=== PATIENT | female | born 2000 | race Caucasian/White ===

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

== ENCOUNTER 2024-01-07 06:28 | Day surgery (SDC) | payer OTHER ==
[2024-01-07] MEDS: Ringers Lactate 1,000 ML IV ONE (07:00)
[2024-01-07] MEDS ORDERED: ONDANSETRON 4 MG/2 ML VIAL ONE (07:57)
[2024-01-07] MEDS ORDERED: dexAMETHasone 10 MG/ML VIAL ONE (07:57)
[2024-01-07] MEDS ORDERED: propofoL 200 MG/20 ML VIAL IV ONE (07:57)
[2024-01-07] MEDS ORDERED: FENTANYL CITR 100 MCG/2 ML ONE (07:57)
[2024-01-07 08:21] VITALS: O2SAT 100
[2024-01-07] MEDS ORDERED: MIDAZOLAM HCL 2 MG/2 ML INJ ONE (08:26)
[2024-01-07] MEDS: SCOPOLAMINE HYDROBROMIDE PATCH TD ONE (08:55)
[2024-01-07] MEDS: ONDANSETRON 4 MG/2 ML VIAL ONE (09:45)
[2024-01-07] MEDS: PROMETHAZINE INJ 25 MG/ML AMP ONE (09:50)
[2024-01-07] MEDS: KETOROLAC 30 MG/ML INJ ONE (10:00)
[2024-01-07] MEDS: ACETAMINOPHEN 160 MG/5 ML UCUP ONE (10:30)
[2024-01-07 12:03] VITALS: BP 139/85; TEMP 97.4
--- NOTE | 2024-01-07 12:56 | OP ---
Date of Procedure: 01/07/2024 Surgeon: RAQUEL TAN Preoperative Diagnosis: Chronic tonsillitis. Postoperative Diagnosis: Chronic tonsillitis. Procedure: Tonsillectomy. Anesthesia: General endotracheal anesthesia was administered. Specimens: Bilateral tonsils submitted to Pathology for evaluation. Estimated Blood Loss: Less than 5 mL. Findings: Bilateral cryptic tonsils with tonsil stones 2/4; no evidence of adenoid tissue. Complications: None. Disposition: Stable. The patient tolerated the procedure well. Indications For Procedure: Patient is a 23-year-old female with the history of chronic tonsillitis f or many years. This has been refractory to multiple rounds of antibiotics. These were indications t o bring the patient to operative suite for the above-mentioned procedure. She understood. All quest ions were answered. Risks versus benefits and complications were explained in detail and a consent f orm was signed, and was placed in the chart. Description Of Procedure: The patient was transferred from the preoperative holding area to the oper ative suite by Department of Anesthesia, placed on the operating room table supine, sedated and intub ated in normal fashion. Table was rotated to 90 degrees and her neck was placed into gentle extensio n. A McIvor retractor was introduced to the right oral commissure and directed along the endotrachea l tube and suspended to the Murphy stand. Tonsils were removed by retracting the superior poles midlin e with straight Allis clamps and then I dissected through the mucosa down the peritonsillar fascial p lanes with monopolar electrocautery on the setting of 20 for coagulation and 1 of cutting and the inf erior poles were then amputated with suction Bovie. The soft palate was retracted anteriorly and the re was no evidence of adenoid tissue when examined with laryngeal mirror. All areas were checked for hemostasis and hemostasis was achieved with suction Bovie on a setting of 20 for coagulation. A fle xible orogastric tube was inserted into the esophagus and stomach and all fluid contents were removed . Patient was then de-suspended from the Murphy stand. McIvor retractor was removed. The patient's j aw was checked, found to be in proper alignment. She was transferred back to Department of Anesthesi a in stable condition and was subsequently transferred to PACU and then discharged home on analgesic medication. Will follow up in 4 weeks or sooner, if needed. SULTANA/MODL Voice ID: [id number] Report ID: [id number]
== END 2024-01-07 11:33 | disposition home or self-care (01) ==
LOC: OR 06:28
PROVIDERS: ATTEND Otolaryngology Facial Plastic Surgery
PROC: 0CTPXZZ Resection of Tonsils, External Approach (ICD-10-PCS; principal; 2024-01-07 08:00)
DX: J35.01 Chronic tonsillitis (principal)
CPT/HCPCS: 81025; 88304; J1100; J2250; J2405; J2550; J2704; J3010; J7120

== ENCOUNTER 2024-03-25 17:17 | Inpatient (IN) | payer OTHER ==
[2024-03-25] MEDS ORDERED: ONDANSETRON 4 MG/2 ML VIAL ONE (17:49)
[2024-03-25] MEDS ORDERED: NA CHLORIDE 0.9% 1,000 ML ONE (17:49)
[2024-03-25] MEDS ORDERED: MORPHINE 4 MG/ML SYR ONE (17:50)
[2024-03-25 18:09] LABS: Absolute Basophils 0.1 K/uL (0-0.5); Absolute Lymphocytes (CBC) 2.4 K/uL (0.7-4.9); Absolute Monocytes 0.7 K/uL (0.1-1.3); Absolute Neutrophil 10.3 K/uL (1.8-8.0); Basophils % 0.6 % (0-1.3); Eosinophils % 0.3 % (0-4.4); Hemoglobin 12.9 g/dL (12.0-15.0); MCH 25.8 pg (27.0-35.0); MCHC 32.3 g/dL (32.0-36.0); MPV 8.5 fL (7.6-11.3); Monocytes % 5.1 % (3.3-12.3); Nucleated Red Blood Cells % 0.1 % (0-0); Platelets 325 thou/uL (152-406); Red Cell Distribution Width 15.8 % (12.1-15.2)
[2024-03-25 18:11] LABS: Specific Gravity 1.015 (1.005-1.030)
[2024-03-25 18:19] LABS: Specific Gravity 1.015 (1.005-1.030); Sqamous Epithelial <5 /HPF (None Seen); Urine Bacteria <20 /HPF (<20); Urine Bilirubin NEGATIVE (Negative); Urine Blood Negative (Negative); Urine Clarity Turbid (Clear); Urine Color Light-Yellow (Yellow); Urine Culture Reflex Order NOT NEEDED; Urine Glucose NEGATIVE (Negative); Urine Ketones NEGATIVE (Negative); Urine Microscopic Reflex YN ORDER UMIC; Urine Nitrite NEGATIVE (Negative); Urine Protein NEGATIVE (Negative); Urine RBC <5 /HPF (None Seen); Urine Urobilinogen Normal (Normal)
[2024-03-25 18:22] LABS: Albumin 3.8 g/dL (3.4-5.0); Albumin/Globulin Ratio 1.2 (1.1-1.8); Anion Gap 9.1 mEq/L (5.0-15.0); Bilirubin Total 0.6 mg/dL (0.2-1.0); Globulin 3.3 g/dL (2.3-3.5); Potassium 4.1 mEq/L (3.5-5.1); Protein, Total 7.1 g/dL (6.4-8.2)
--- NOTE | 2024-03-25 18:59 | RAD REPORT ---
EXAM DESCRIPTION: CT - Abdomen Pelvis W Contrast - 03/25/2024 6:38 pm CLINICAL HISTORY: Abdominal pain COMPARISON: 2021 TECHNIQUE: Computed axial tomography of the abdomen pelvis was obtained. 100 cc Isovue-300 was admin istered intravenously. Oral contrast was not requested which limits evaluation of bowel and appendix All CT scans are performed using dose optimization technique as appropriate and may include automated exposure control or mA/KV adjustment according to patient size. FINDINGS: The liver, spleen, pancreas, adrenal and kidneys appear unremarkable. There is no evidence of diverticulitis. 5 millimeter gallstone within neck of the gallbladder. 2.2 centimeter left ovarian cyst. No followup imaging recommended. No significant fluid. Appendix is normal caliber. There may be stone within the appendix IUD within the uterus IMPRESSION: Cholelithiasis 2.2 centimeter left ovarian cyst
--- NOTE | 2024-03-25 19:01 | RAD REPORT ---
EXAM DESCRIPTION: US - Abdomen Exam Limited - 03/25/2024 6:05 pm CLINICAL HISTORY: Abdominal pain. COMPARISON: CT abdomen March 25, 2024 FINDINGS: CT on the same date demonstrates a 5 millimeter stone within the neck of the gallbladder. This was not visualized on this exam but it is still felt to be present Gallbladder wall is not thickened The biliary tree is normal caliber. IMPRESSION: Cholelithiasis without evidence cholecystitis
[2024-03-25] MEDS ORDERED: DIPHENHYDRAMINE 50 MG/ML VIAL ONE (19:05)
[2024-03-25] MEDS ORDERED: METOCLOPRAMIDE 10 MG/2mL INJ ONE (19:05)
[2024-03-25] MEDS ORDERED: NA CHLORIDE 0.9% 100 ML ONE (20:44)
[2024-03-25] MEDS ORDERED: PIPERACIL/TAZO 3.375 GM VIAL IV ONE (20:45)
--- NOTE | 2024-03-25 21:19 | ER ---
Nurse's Notes [facility] Name: Audrey Alford Age: 24 yrs Sex: Female : 2000 Arrival Date: 03/25/2024 Time: 17:17 Bed 14 Private MD: Diagnosis: Other cholelithiasis without obstruction Presentation: 03/25 17:27 Chief complaint: EMS states: Sudden onset severe RLQ pain that started at 1600. hb Fentanyl 75 mcg, Zofran 4 mg, and NS 750 mls administered to 20g [employer]. Coronavirus screen: At this time, the client does not indicate any symptoms associated with coronavirus-19. Ebola Screen: No symptoms or risks identified at this time. Initial Sepsis Screen: Does the patient meet any 2 criteria? No. Patient's initial sepsis screen is negative. Does the patient have a suspected source of infection? No. Patient's initial sepsis screen is negative. Risk Assessment: Do you want to hurt yourself or someone else? Patient reports no desire to harm self or others. Onset of symptoms was March 25, 2024 at 16:00. 17:27 Method Of Arrival: EMS: [facility] hb 17:27 Acuity: ADRIANA 3 hb Historical: - Allergies: 17:30 benzocaine; hb 17:30 Lidocaine; hb 17:30 numbing agents; hb - Home Meds: 17:30 Concerta Oral [Active]; hb - PMHx: 17:30 ADD/ADHD; prolonged QT; hb - PSHx: 17:30 None; hb - Immunization history:: Adult Immunizations up to date. - Infectious Disease History:: Denies. - Social history:: Smoking status: Patient denies any tobacco usage or history of. Screenin:30 [facility] ED Fall Risk Assessment (Adult) History of falling in the last 3 months, rs5 including since admission No falls in past 3 months (0 pts) Confusion or Disorientation No (0 pts) Intoxicated or Sedated No (0 pts) Impaired Gait No (0 pts) Mobility Assist Device Used No (0 pt) Altered Elimination No (0 pt) Score/Fall Risk Level 0 - 2 = Low Risk Oriented to surroundings, Maintained a safe environment. Abuse screen: Denies threats or abuse. Nutritional screening: No deficits noted. Tuberculosis screening: No symptoms or risk factors identified. Assessment: 17:30 General: Appears in no apparent distress. uncomfortable, Behavior is cooperative, rs5 agitated, anxious. Pain: Complains of pain in abdomen Pain currently is 10 out of 10 on a pain scale. Quality of pain is described as aching, Is continuous. Neuro: Level of Consciousness is awake, alert, obeys commands, Oriented to person, place, time, situation. Cardiovascular: Patient's skin is warm and dry. Respiratory: Airway is patent Respiratory effort is even, unlabored, Respiratory pattern is regular, symmetrical. GI: Abdomen is round non-distended, Bowel sounds present X 4 quads. Abd is soft and non tender X 4 quads. : No signs and/or symptoms were reported regarding the genitourinary system. EENT: No signs and/or symptoms were reported regarding the EENT system. Derm: Skin is intact, Skin is pink, warm \T\ dry. Musculoskeletal: Range of motion: intact in all extremities. 19:10 General: Appears in no apparent distress. uncomfortable, Behavior is calm, cooperative. jw7 Pain: Complains of pain in abdomen Pain does not radiate. Pain currently is 8 out of 10 on a pain scale. Quality of pain is described as aching, Pain began gradually, Is continuous. Neuro: Level of Consciousness is awake, alert, obeys commands, Oriented to person, place, time, situation. Cardiovascular: Capillary refill < 3 seconds Clubbing of nail beds is absent JVD is absent Patient's skin is warm and dry. Respiratory: Airway is patent Trachea midline Respiratory effort is even, unlabored, Respiratory pattern is regular, symmetrical. GI: Abdomen is round non-distended, Bowel sounds present X 4 quads. Abd is soft and non tender X 4 quads. : No deficits noted. No signs and/or symptoms were reported regarding the genitourinary system. EENT: No deficits noted. No signs and/or symptoms were reported regarding the EENT system. Derm: Skin is intact, is healthy with good turgor, Skin is dry, Skin is normal, Skin temperature is warm. Musculoskeletal: Circulation, motion, and sensation intact. Range of motion: intact in all extremities. 20:25 Reassessment: Patient appears in no apparent distress at this time. Patient and/or jw7 family updated on plan of care and expected duration. Pain level reassessed. Patient is alert, oriented x 3, equal unlabored respirations, skin warm/dry/pink. 21:30 Reassessment: Patient appears in no apparent distress at this time. No changes from [facility] previously documented assessment. Patient and/or family updated on plan of care and expected duration. Pain level reassessed. Patient is alert, oriented x 3, equal unlabored respirations, skin warm/dry/pink. 22:30 Reassessment: Patient appears in no apparent distress at this time. No changes from [facility] previously documented assessment. Patient and/or family updated on plan of care and expected duration. Pain level reassessed. Patient is alert, oriented x 3, equal unlabored respirations, skin warm/dry/pink. 23:30 Reassessment: Patient appears in no apparent distress at this time. No changes from [facility] previously documented assessment. Patient and/or family updated on plan of care and expected duration. Pain level reassessed. Patient is alert, oriented x 3, equal unlabored respirations, skin warm/dry/pink. 03/26 00:00 Reassessment: Patient appears in no apparent distress at this time. No changes from [facility] previously documented assessment. Patient and/or family updated on plan of care and expected duration. Pain level reassessed. Patient is alert, oriented x 3, equal unlabored respirations, skin warm/dry/pink. Vital Signs: 03/25 17:27 BP 128 / 78; Pulse 69; Resp 19; Temp 98.8(TE); Pulse Ox 100% on R/A; Weight 55.79 kg; hb Height 5 ft. 4 in. ; Pain 6/10; 19:00 BP 135 / 81; Pulse 83; Resp 17 S; Pulse Ox 99% on R/A; jw7 20:15 BP 116 / 74; Pulse 68; Resp 15 S; Pulse Ox 98% on R/A; jw7 21:00 BP 124 / 67; Pulse 71; Resp 16 S; Pulse Ox 100% on R/A; bm8 22:00 BP 113 / 68; Pulse 79; Resp 15 S; Pulse Ox 99% on R/A; bm8 23:00 BP 101 / 50; Pulse 61; Resp 16 S; Pulse Ox 98% on R/A; 8 03/26 00:00 BP 122 / 86; Pulse 78; Resp 16 S; Pulse Ox 99% on R/A; bm8 03/25 17:27 Body Mass Index 21.11 (55.79 kg, 162.56 cm) hb 03/25 17:27 Pain Scale: Adult hb ED Course: 03/25 17:26 Patient arrived in ED. hb 17:27 Praful Salas PA is PHCP. cp 17:27 Micheal Colin MD is Attending Physician. cp 17:30 Triage completed. hb 17:30 Patient has correct armband on for positive identification. Placed in gown. Bed in low rs5 position. Call light in reach. Side rails up X2. 17:30 No provider procedures requiring assistance completed. rs5 17:31 Arm band placed on. hb 17:38 Prabhjot Kuo, RN is Primary Nurse. rs5 18:07 US Abdomen Limited In Process Unspecified. EDMS 18:38 CT Abd/Pelvis - IV Contrast Only In Process Unspecified. EDMS 19:00 Provided Education on: Use of Call Light. bm8 21:18 Cole Cuba MD is Hospitalizing Provider. cp 21:18 Venkat Montenegro MD is Hospitalizing Provider. cp 03/26 00:00 Patient admitted, IV remains in place. bm8 Administered Medications: 03/25 17:40 Drug: NS 0.9% IV 1000 ml IV at 999 ml/hr Per protocol; 1000 mL bolus Route: IV; Rate: rs5 999 ml/hr; Site: left antecubital; 20:00 Follow up: Response: No adverse reaction; IV Status: Completed infusion; IV Intake: bm8 1000ml 17:40 Drug: Ondansetron IVP 4 mg IVP once; over 2 minutes Route: IVP; Site: left antecubital; rs5 19:00 Follow up: Response: No adverse reaction; Marked relief of symptoms bm8 17:40 Drug: morphine IVP or IV 4 mg IVP once over 4 mins Route: IVP; Infused Over: 4 mins; rs5 Site: left antecubital; 20:56 Follow up: Response: No adverse reaction; Marked relief of symptoms jw7 19:15 Drug: metoCLOPramide IVP 10 mg IVP once; over 1 to 2 minutes Route: IVP; Site: left jw antecubital; 20:56 Follow up: Response: No adverse reaction; Marked relief of symptoms jw7 19:15 Drug: diphenhydrAMINE IVP 25 mg IVP once Route: IVP; Site: left antecubital; jw7 20:57 Follow up: Response: No adverse reaction jw7 20:56 Drug: Piperacillin-Tazobactam IVPB 3.375 grams IVPB once over 60 mins; (mix in NS 100 jw7 mL) Route: IVPB; Infused Over: 60 mins; Site: left antecubital; 03/26 01:19 Follow up: Response: No adverse reaction; IV Status: Completed infusion; IV Intake: bm8 100ml Medication: 03/25 18:00 VIS not applicable for this client. rs5 Intake: 20:00 IV: 1000ml; Total: 1000ml. bm8 03/26 01:19 IV: 100ml; Total: 1100ml. bm8 Outcome: 03/25 21:19 Decision to Hospitalize by Provider. cp 03/26 00:00 Condition: stable bm8 00:00 Admitted to Med/surg accompanied by tech, via wheelchair, bm8 00:00 Instructed on the need for admit, Demonstrated understanding of instructions, 01:21 Patient left the ED. bm8 Signatures: Dispatcher [employer] EDMS Praful Salas PA PA cp Graciela Manuel RN RN Nancie Howard RN RN jw7 Prabhjot Kuo RN RN rs5 Rafael Ivory RN RN bm8 Corrections: (The following items were deleted from the chart) 01:03/25 23:30 Reassessment: Patient appears in no apparent distress at this time. No bm8 changes from previously documented assessment. Patient and/or family updated on plan of care and expected duration. Pain level reassessed. Patient is alert, oriented x 3, equal unlabored respirations, skin warm/dry/pink. jw7
--- NOTE | 2024-03-25 21:19 | EDPHYS ---
Physician Documentation [facility] Name: Audrey Alford Age: 24 yrs Sex: Female : 2000 Arrival Date: 03/25/2024 Time: 17:17 Bed 14 Private MD: ED Physician Micheal Colin HPI: 03/25 17:29 This 24 yrs old Female presents to ER via Unassigned with complaints of Abdominal Pain. cp 17:29 The patient presents with abdominal pain right flank and right side of abdomen. cp 17:29 Onset: The symptoms/episode began/occurred today, about 1600. cp 17:29 The symptoms radiate to Associated signs and symptoms: Pertinent positives: nausea and cp vomiting, Pertinent negatives: constipation, diarrhea, fever. The symptoms are described as constant. Severity of pain: in the emergency department the pain has improved mildly. Historical: - Allergies: 17:30 benzocaine; hb 17:30 Lidocaine; hb 17:30 numbing agents; hb - Home Meds: 17:30 Concerta Oral [Active]; hb - PMHx: 17:30 ADD/ADHD; prolonged QT; hb - PSHx: 17:30 None; hb - Immunization history:: Adult Immunizations up to date. - Infectious Disease History:: Denies. - Social history:: Smoking status: Patient denies any tobacco usage or history of. ROS: 17:35 Constitutional: Negative for body aches, chills, fever, cp 17:35 Eyes: Negative for injury, pain, redness, and discharge, cp 17:35 ENT: Negative for drainage from ear(s), ear pain, sore throat, difficulty swallowing, difficulty handling secretions, 17:35 Cardiovascular: Negative for chest pain, palpitations, 17:35 Respiratory: Negative for cough, shortness of breath, wheezing, 17:35 Abdomen/GI: Positive for abdominal pain, nausea and vomiting, Negative for diarrhea, constipation, 17:35 Back: Positive for radiated pain, 17:35 Neuro: Negative for altered mental status, headache, weakness, 17:35 All other systems are negative, Exam: 17:40 Constitutional: The patient appears in no acute distress, alert, awake, non-toxic, well cp developed, well nourished, in obvious pain, uncomfortable, 17:40 Head/Face: Normocephalic, atraumatic. cp 17:40 Eyes: Periorbital structures: appear normal, Conjunctiva: normal, no exudate, no injection, Sclera: no appreciated abnormality, Lids and lashes: appear normal, bilaterally, 17:40 ENT: External ear(s): are unremarkable, Nose: is normal, Mouth: Lips: moist, Oral mucosa: pink and intact, moist, Posterior pharynx: is normal, airway is patent, no erythema, no exudate, 17:40 Chest/axilla: Inspection: normal, 17:40 Cardiovascular: Rate: normal, Rhythm: regular, 17:40 Respiratory: the patient does not display signs of respiratory distress, Respirations: normal, no use of accessory muscles, no retractions, labored breathing, is not present, Breath sounds: are clear throughout, no decreased breath sounds, no stridor, no wheezing, 17:40 Abdomen/GI: Inspection: abdomen appears normal, Bowel sounds: active, all quadrants, Palpation: soft, in all quadrants, severe abdominal tenderness, in the epigastric area and right upper quadrant, rebound tenderness, is not appreciated, voluntary guarding, is elicited in the epigastric area and right upper quadrant, 17:40 Back: CVA tenderness, is absent, 17:40 Neuro: Orientation: to person, place \T\ time. Mentation: is normal, Vital Signs: 17:27 BP 128 / 78; Pulse 69; Resp 19; Temp 98.8(TE); Pulse Ox 100% on R/A; Weight 55.79 kg; hb Height 5 ft. 4 in. ; Pain 6/10; 19:00 BP 135 / 81; Pulse 83; Resp 17 S; Pulse Ox 99% on R/A; jw7 20:15 BP 116 / 74; Pulse 68; Resp 15 S; Pulse Ox 98% on R/A; jw7 21:00 BP 124 / 67; Pulse 71; Resp 16 S; Pulse Ox 100% on R/A; bm8 22:00 BP 113 / 68; Pulse 79; Resp 15 S; Pulse Ox 99% on R/A; bm8 23:00 BP 101 / 50; Pulse 61; Resp 16 S; Pulse Ox 98% on R/A; bm8 03/26 00:00 BP 122 / 86; Pulse 78; Resp 16 S; Pulse Ox 99% on R/A; bm8 03/25 17:27 Body Mass Index 21.11 (55.79 kg, 162.56 cm) hb 03/25 17:27 Pain Scale: Adult hb MDM: 03/25 17:27 Patient medically screened. cp 18:00 Differential diagnosis: appendicitis, cholecystitis, Cholelithiasis, pancreatitis, cp Peptic Ulcer Disease, Perf. Duodenal Ulcer, Perf. Gastric Ulcer, Ureterolithiasis, urinary tract infection, choledocholithiasis. 20:05 ED course: msg left on voicemail of DR Cuba. cp 20:13 Data reviewed: vital signs, nurses notes, lab test result(s), radiologic studies, CT cp scan, ultrasound, and as a result, I will admit patient. 20:13 Management of patient was discussed with the following: Bulkhead Carpenter: DR Cuba will cp consult. I considered the following discharge prescriptions or medication management in the emergency department Medications were administered in the Emergency Department. See MAR. Independent interpretation of the following test(s) in the Emergency Department EKG: See my EKG interpretation above. Counseling: I had a detailed discussion with the patient and/or guardian regarding the historical points, exam findings, and any diagnostic results supporting the discharge/admit diagnosis, lab results, radiology results, the need for further work-up and treatment in the hospital. 03/25 17:27 Order name: CBC with Diff; Complete Time: 18:28 cp 03/25 19:05 Interpretation: Normal except: WBC 13.60; RBC 5.00; MCH 25.8; RDW 15.8; TATIANA% 76.0; NEUT cp A 10.3. 03/25 17:27 Order name: CMP; Complete Time: 18:28 cp 03/25 17:27 Order name: Lipase; Complete Time: 18:28 cp 03/25 17:27 Order name: Test, Urine; Complete Time: 18:28 cp 03/25 17:27 Order name: Urinalysis w/ reflexes; Complete Time: 18:28 cp 03/25 22:55 Order name: Urinalysis w/ reflexes EDMS 03/25 22:55 Order name: Urinalysis w/ reflexes EDMS 03/25 22:55 Order name: CBC with Automated Diff EDMS 03/25 22:55 Order name: CBC with Automated Diff EDMS 03/25 22:55 Order name: Comprehensive Metabolic Panel [facility] 03/25 22:55 Order name: Comprehensive Metabolic Panel [facility] 03/25 17:49 Order name: US Abdomen Limited; Complete Time: 19:03 cp 03/25 18:05 Order name: CT Abd/Pelvis - IV Contrast Only; Complete Time: 19:03 cp 03/25 20:28 Order name: EKG; Complete Time: 20:28 cp 03/25 22:55 Order name: CONS Physician Consult [facility] 03/25 17:27 Order name: IV Saline Lock; Complete Time: 18:22 cp 03/25 17:27 Order name: Labs collected and sent; Complete Time: 17:58 cp 03/25 17:49 Order name: NPO; Complete Time: 17:58 cp 03/25 20:28 Order name: EKG - Nurse/Tech; Complete Time: 21:34 cp Administered Medications: 17:40 Drug: NS 0.9% IV 1000 ml IV at 999 ml/hr Per protocol; 1000 mL bolus Route: IV; Rate: rs5 999 ml/hr; Site: left antecubital; 20:00 Follow up: Response: No adverse reaction; IV Status: Completed infusion; IV Intake: bm8 1000ml 17:40 Drug: Ondansetron IVP 4 mg IVP once; over 2 minutes Route: IVP; Site: left antecubital; rs5 19:00 Follow up: Response: No adverse reaction; Marked relief of symptoms bm8 17:40 Drug: morphine IVP or IV 4 mg IVP once over 4 mins Route: IVP; Infused Over: 4 mins; rs5 Site: left antecubital; 20:56 Follow up: Response: No adverse reaction; Marked relief of symptoms jw7 19:15 Drug: metoCLOPramide IVP 10 mg IVP once; over 1 to 2 minutes Route: IVP; Site: left [facility] antecubital; 20:56 Follow up: Response: No adverse reaction; Marked relief of symptoms jw7 19:15 Drug: diphenhydrAMINE IVP 25 mg IVP once Route: IVP; Site: left antecubital; jw7 20:57 Follow up: Response: No adverse reaction [facility] 20:56 Drug: Piperacillin-Tazobactam IVPB 3.375 grams IVPB once over 60 mins; (mix in NS 100 jw7 mL) Route: IVPB; Infused Over: 60 mins; Site: left antecubital; 03/26 01:19 Follow up: Response: No adverse reaction; IV Status: Completed infusion; IV Intake: bm8 100ml Disposition: 03/25 20:14 Co-signature as Attending Physician, Micheal Colin MD I reviewed the patient's care rt provided by the Advanced Practice Provider and agree with the diagnosis and treatment plan. Disposition Summary: 03/25/24 21:19 Hospitalization Ordered Notes: Hospitalization Status: Inpatient Admission cp Provider: Venkat Montenegro cp [facility] cp Condition: Stable cp Problem: new cp Symptoms: have improved cp Bed/Room Type: Standard cp Room Assignment: 231(03/25/24 23:16) vc1 Diagnosis - Other cholelithiasis without obstruction cp Forms: - Medication Reconciliation Form cp - SBAR form cp - Leadership Thank You Letter cp Signatures: Dispatcher [employer] EDMS Praful Salas PA PA cp Graciela Manuel RN RN Gladys Escobar RN RN vc1 Nancie Howard RN RN jw7 Micheal Colin MD MD rt Prabhjot Kuo RN RN rs5 Rafael Ivory RN bm8 Corrections: (The following items were deleted from the chart) 17:28 17:28 CBC+H.LAB.BRZ ordered. EDMS EDMS 17:28 17:28 COMPREHENSIVE METABOLIC PANEL+C.LAB.BRZ ordered. EDMS EDMS 17:28 17:28 LIPASE+C.LAB.BRZ ordered. EDMS EDMS 17:28 17:28 Test, Urine+UC.LAB.BRZ ordered. EDMS EDMS 17:28 17:28 Urinalysis+U.LAB.BRZ ordered. EDMS EDMS 23:16 21:19 cp vc1
--- NOTE | 2024-03-25 22:32 | P.HP ---
Certification for Inpatient Patient admitted to: Observation With expected LOS: <2 Midnights Practitioner: I am a practitioner with admitting privileges, knowledge of patient current condition, hospital course, and medical plan of care. Services: Services provided to patient in accordance with Admission requirements found in Title 42 Section 412.3 of the Code of Federal Regulations Patient History Date of Service: 03/25/24 Reason for admission: Cholecystitis History of Present Illness: 22-year-old female came with past medical history of ADD, prolonged QT who came in with complaints of Abdominal Pain.The patient presents with abdominal pain right flank and right side of abdomen. Pain is 5 out of 10 in severity in the ER at the time of interview. Denies any nausea vomiting. No fever or chills. No sick contacts Patient was assessed in the ER and was found to have acute cholecystitis and was admitted for further management. Allergies benzocaine Allergy (Verified 01/07/24 08:01) 02 sats drop lidocaine Allergy (Verified 01/07/24 08:01) o2 sats drop Home Medications: NK [No Home Meds] 01/06/24 - Past Medical/Surgical History Past Medical History: Reviewed- Non-Contributory Past Surgical History: Reviewed- Non-Contributory - Family History Family History: Reviewed- Non-Contributory - Social History Smoking Status: Never smoker Review of Systems 10-point ROS is otherwise unremarkable Physical Examination - Vital Signs Temperature: 97.8 F Blood Pressure: 126/68 Pulse: 78 Respirations: 18 Pulse Ox (%): 94 - Physical Exam General: Alert, In no apparent distress, Oriented x3 HEENT: Atraumatic, Normocephalic Neck: Supple, No Thyromegaly Respiratory: Clear to auscultation bilaterally, Normal air movement Cardiovascular: Normal pulses, Regular rate/rhythm, Normal S1 S2 Capillary refill: <2 Seconds Gastrointestinal: Soft and benign, W/out hepatosplenomegaly, Tenderness Musculoskeletal: No clubbing, No swelling Integumentary: No rashes, No breakdown Neurological: Normal speech, Normal strength at 5/5 x4 extr, Cranial nerves 3-12 intact, Normal reflexes 2+, Normal affect Lymphatics: No axilla or inguinal lymphadenopathy - Studies Laboratory Data (last 24 hrs) 03/25/24 03/25/24 17:54 17:54 WBC 13.60 H Hgb 12.9 Hct 40.0 Plt Count 325 Sodium 137 Potassium 4.1 BUN 12 Creatinine 0.90 Glucose 88 Total Bilirubin 0.6 AST 16 ALT 21 Alkaline Phosphatase 66 Lipase 29 Assessment and Plan - Problems (Diagnosis) (1) Cholecystitis Current Visit: Yes Status: Acute Plan: Acute cholecystitis Pain control N.p.o. postmidnight IV hydration Started on Zosyn Surgical consult Possible lap evert in a.m. GI/DVT prophylaxis Advanced directive full code Discharge Plan: Home Plan to discharge in: 48 Hours - Advance Directives Does patient have a Living Will: No Does patient have a Durable POA for Healthcare: No - Code Status/Comfort Care Code Status: Full Code Time Spent Managing Pts Care (In Minutes): 48
[2024-03-26] MEDS ORDERED: ONDANSETRON 4 MG/2 ML VIAL IV PRN
[2024-03-26] MEDS: NA CHLORIDE 0.9% 1,000 ML IV SCH (00:40)
[2024-03-26] MEDS: MORPHINE 4 MG/ML SYR IV PRN (01:36)
[2024-03-26] MEDS: PROMETHAZINE INJ 25 MG/ML AMP IV PRN (01:47)
[2024-03-26 06:29] LABS: Hematocrit 35.3 % (36.0-45.0); Hemoglobin 11.9 g/dL (12.0-15.0); RBC Red Blood Cell Count 4.42 M/uL (3.86-4.86)
[2024-03-26 06:30] LABS: Absolute Eosinophils 0.1 K/uL (0-0.5); Absolute Monocytes 0.6 K/uL (0.1-1.3); Basophils % 0.5 % (0-1.3); Lymphocytes % 30.4 % (15.3-44.8); MCH 26.9 pg (27.0-35.0); MCHC 33.6 g/dL (32.0-36.0); MPV 8.4 fL (7.6-11.3); Neutrophils % 59.1 % (41.7-73.7); Platelets 233 thou/uL (152-406); Red Cell Distribution Width 15.8 % (12.1-15.2)
[2024-03-26 07:11] LABS: Albumin 2.9 g/dL (3.4-5.0); Albumin/Globulin Ratio 1.1 (1.1-1.8); Anion Gap 7.9 mEq/L (5.0-15.0); Bilirubin Total 0.3 mg/dL (0.2-1.0); Globulin 2.6 g/dL (2.3-3.5); Potassium 3.9 mEq/L (3.5-5.1); Protein, Total 5.5 g/dL (6.4-8.2)
--- NOTE | 2024-03-26 08:44 | P.PN ---
Date of Service: 03/26/24 Subjective NPO for surg to eval acute cholecystitis, pain control as needed analgesia Review of Systems 10-point ROS is otherwise unremarkable Physical Examination - Vital Signs Temperature: 97.8 F Blood Pressure: 126/68 Pulse: 78 Respirations: 18 Pulse Ox (%): 94 - Physical Exam General: Alert, mild distress, facial grimace, oriented x3 HEENT: Atraumatic, Normocephalic Neck: Supple, No Thyromegaly Respiratory: Clear to auscultation bilaterally, Normal air movement Cardiovascular: Normal pulses, Regular rate/rhythm, Normal S1 S2 Capillary refill: <2 Seconds Gastrointestinal: Soft and benign, W/out hepatosplenomegaly, Tenderness Musculoskeletal: No clubbing, No swelling Integumentary: No rashes, No breakdown Neurological: Normal speech, Normal strength at 5/5 x4 extr,, Normal reflexes 2+, Normal affect Assessment and Plan - Problems (Diagnosis) Acute cholecystitis Pain control N.p.o. postmidnight IV hydration Started on Zosyn Surgical consult Possible lap evert in a.m. GI/DVT prophylaxis Advanced directive full code Discharge Plan: Home Plan to discharge in: 48 Hours - Advance Directives Does patient have a Living Will: No Does patient have a Durable POA for Healthcare: No - Code Status/Comfort Care Code Status: Full Code Time Spent Managing Pts Care (In Minutes): 35 <Kelsi Wu - Last Filed: 03/27/24 12:18> Chart has been reviewed. Events of the last 24 hours have been noted. Case discussed with ADITI. I performed a substantial part of the MDM during this patient's care today. I personally made or approved the documented management plan and acknowledge its risk of complications. I agree with the findings and documentation provided in the ADITI's notes Discharge on hold because of elevated LFTs. Repeat in a.m. and if improved anticipate discharge home. <Alex Rosario - Last Filed: 03/29/24 03:32>
--- NOTE | 2024-03-26 08:45 | P.DS ---
Admission Date: 03/25/24 Discharge Date: 03/27/24 Disposition: ROUTINE DISCHARGE Discharge Condition: GOOD Reason for Admission: Cholecystitis Brief History of Present Illness: 22-year-old female came with past medical history of ADD, prolonged QT who came in with complaints of Abdominal Pain.The patient presents with abdominal pain right flank and right side of abdomen. Pain is 5 out of 10 in severity in the ER at the time of interview. Denies any nausea vomiting. No fever or chills. No sick contacts Patient was assessed in the ER and was found to have acute cholecystitis and was admitted for further management. - Physical Exam General: Alert, In no apparent distress, Oriented x3 HEENT: Atraumatic, Normocephalic Neck: Supple, No Thyromegaly Respiratory: Clear to auscultation bilaterally, Normal air movement Cardiovascular: Normal pulses, Regular rate/rhythm, Normal S1 S2 Capillary refill: <2 Seconds Gastrointestinal: Soft and benign, W/out hepatosplenomegaly, Tenderness Musculoskeletal: No clubbing, No swelling Integumentary: No rashes, No breakdown Neurological: Normal speech, Normal strength at 5/5 x4 extr, Cranial nerves 3-12 intact, Normal reflexes 2+, Normal affect Lymphatics: No axilla or inguinal lymphadenopathy Hospital Course: 22-year-old female came with past medical history of ADD, prolonged QT who came in with complaints of Abdominal Pain.The patient presents with abdominal pain right flank and right side of abdomen. Was noted to have acute cholecystitis. She was evaluated by surgery, status post lap cholecystectomy, condition improved with IV fluids, as needed analgesics, as needed antiemetics, antibiotics. Patient tolerating diet, stable for discharge to home with follow- up appointment with primary care physician. Follow-up with surgery after discharge, no heavy lifting greater than 10, follow-up with surgery in 1 PROBLEM: Acute cholecystitis, evaluated by Dr. Cuba, status post laparoscopic cholecystectomy, follow-up with surgery after discharge, no heavy lifting greater than 10 LBS Continue home medicines as previously prescribed GOAL: Clear understanding of disease process INSTRUCTIONS: Physician Discharge Instructions: -Follow-up with PCP in 1 to 2 weeks -Please call Dr. Rosario at [phone] if any questions regarding hospital stay -Please call nursing station at [phone] if any nursing or medication questions -Return to the emergency room if symptoms worsen Diet: ADA, low sodium Activity: Fall precautions Vital Signs/Physical Exam: Temp Pulse Resp BP Pulse Ox 97.5 F 58 17 102/54 L 100 03/26/24 04:00 03/26/24 04:00 03/26/24 04:00 03/26/24 04:00 03/26/24 04:00 Laboratory Data at Discharge: WBC 6.70 thou/uL (4.3-10.9) 03/26/24 05:56 Hgb 11.9 g/dL (12.0-15.0) L 03/26/24 05:56 Hct 35.3 % (36.0-45.0) L 03/26/24 05:56 Plt Count 233 thou/uL (152-406) D 03/26/24 05:56 Sodium 141 mEq/L (136-145) 03/26/24 05:59 Potassium 3.9 mEq/L (3.5-5.1) 03/26/24 05:59 BUN 9 mg/dL (7-18) 03/26/24 05:59 Creatinine 0.77 mg/dL (0.55-1.02) 03/26/24 05:59 Glucose 82 mg/dL (74-106) 03/26/24 05:59 Total Bilirubin 0.3 mg/dL (0.2-1.0) 03/26/24 05:59 AST 66 U/L (15-37) H 03/26/24 05:59 ALT 53 U/L (13-56) 03/26/24 05:59 Alkaline Phosphatase 68 U/L (45-117) 03/26/24 05:59 Lipase 29 U/L (13-75) 03/25/24 17:54 Home Medications: Codeine/APAP [Tylenol W/Codeine #3 tab] 1 tab PO Q8HP PRN 5 Days #15 tab 03/27/24 New Medications: Codeine/APAP [Tylenol W/Codeine #3 tab] 1 tab PO Q8HP PRN 5 Days #15 tab PRN Reason: Pain Physician Discharge Instructions: Keep surgical area dry and clean for 48h then may remove outer gauze and shower but keep sterile strips intact. Diet: Low sodium Activity: No lifting more than 10 lbs Followup: Cole Cuba MD [ACTIVE - CAN ADMIT] - 1 Week NONE,NONE [Primary Care Provider] - Time spent managing pt's care (in minutes): 55
[2024-03-26] MEDS: Ringers Lactate 1,000 ML IV ONE ×2 (09:27→11:26)
[2024-03-26] MEDS: SUGAMMADEX SODIUM 200 MG/2 ML VIAL IV ONE (09:51)
[2024-03-26] MEDS ORDERED: ROCURONIUM 50 MG/5 ML VIAL IV ONE (09:52)
[2024-03-26] MEDS ORDERED: FENTANYL CITR 100 MCG/2 ML ONE ×2 (09:52→11:16)
[2024-03-26] MEDS ORDERED: MIDAZOLAM HCL 2 MG/2 ML INJ ONE (09:52)
[2024-03-26] MEDS ORDERED: propofoL 200 MG/20 ML VIAL IV ONE (09:52)
[2024-03-26] MEDS ORDERED: ONDANSETRON 4 MG/2 ML VIAL ONE ×2 (09:52→11:14)
[2024-03-26] MEDS ORDERED: dexAMETHasone 4 MG/ML VIAL ONE (09:52)
[2024-03-26] MEDS: METHYLENE BLUE 1% 10 ML VIAL ONE (10:12)
--- NOTE | 2024-03-26 10:28 | P.BOP ---
Preoperative diagnosis: Acute cholecystitis, intractable RUQ abd pain, sympt cholelithiasis Postoperative diagnosis: same Primary procedure: Laparoscopic cholecystectomy Business Management Intern: Kelsi Bose (Bert) Estimated blood loss: <10cc Specimen: gb Findings: as above Anesthesia: General Complications: None Transferred to: Recovery Room Condition: Good
[2024-03-26] MEDS: PIPER TAZO 3.375 GM in NA CHLORIDE 0.9% 100 ML IV ONE (10:35)
--- NOTE | 2024-03-26 11:02 | CON ---
Date of Consultation: 03/26/2024 Diagnoses: Acute cholecystitis, symptomatic cholelithiasis. History Of Present Illness: This is a case of a 24-year-old patient who comes to the hospital with e pigastric right upper quadrant back. We are trying to give her some pain medication, some relief, but it did not improve, so she was admitted overnight and a surgical consult was obtained fo r a cholecystectomy. She claims this is her first attack. She was eating a morel and cheese sandwic h before that happened. Allergies: INCLUDE BENZOCAINE, LIDOCAINE. Medications: None. Past Surgical History: Tonsillectomy. Family History: Noncontributory. Social History: She does not smoke. She does not drink alcohol. Medical Problems: History of ADD. Medications: Not on any medication at this moment. Review of Systems: Nausea, vomiting, bloating, abdominal pain. Physical Examination: Vital Signs: Reviewed. General: The patient is awake and alert. HEENT: Pupils are equal and reactive. Anicteric. Neck: Supple. Chest: Clear. Heart: S1, S2. Abdomen: Epigastric right upper quadrant pain with Talley sign positive. Breasts/Rectal/Pelvic: Deferred. Extremities: Good capillary refill. Neuro: Cranial nerves 2-12 grossly within normal limits. Laboratory Data: WBC count of 13, hemoglobin of 12.9, platelets of 325, potassium is 4.1, creatinine is 0.9. Total bilirubin of 0.6. Lipase 29. Abdominal ultrasound interpreted by Dr. Martel shows cholelithiasis. CAT scan of the abdomen and pelvis interpreted by Dr. Martel as 2.2 cm left ovarian cyst and cholelithiasis. Assessment: The patient was informed. Laparoscopic versus open cholecystectomy fully explained, whi ch include, but not limited to infection, bleeding, damage to adjacent structures as complication, ch oledocholithiasis, bile leak, pancreatitis, myocardial infarction, and even . She also understa nds this may not relieve symptoms she might need more than one surgical intervention. She understood , signed a consent. The patient was advised to see her acute care certified nursing assistant as an outpatient. Also, her gas troenterologist for history of reflux. HM/MODL Voice ID: [id number] Report ID: [id number]
[2024-03-26] MEDS: HYDROMORPHONE HCL 1 MG/ML INJ ONE (11:30)
[2024-03-26] MEDS: MIDAZOLAM HCL 2 MG/2 ML INJ ONE (11:40)
--- NOTE | 2024-03-26 11:47 | OP ---
Date of Procedure: 03/26/2024 Surgeon: Cole Cuba MD Rand Tacker: EDWIN Louise. Preoperative Diagnoses: Acute cholecystitis, intractable right upper quadrant abdominal pain, sympto matic cholelithiasis. Postoperative Diagnoses: Acute cholecystitis, intractable right upper quadrant abdominal pain, sympt omatic cholelithiasis. Procedure: Laparoscopic cholecystectomy. Estimated Blood Loss: Less than 10 cc. Specimen: Gallbladder. Findings: As above. Anesthesia: General. Complications: None. Indications: This is a case of a female who comes to us with abdominal pain, diagnosed with acute ch olecystitis and symptomatic cholelithiasis for laparoscopic, possible open cholecystectomy as one of the options. She wants surgery to be done, so she was scheduled for laparoscopic, possible open chol ecystectomy with benefits, alternatives, and risks including, but not limited to, infection, bleeding , damage to adjacent structures, anesthesia complication, choledocholithiasis, bile leak, pancreatiti s, [place], and even . She also understands this may not relieve symptoms. She might need more than one surgical intervention. She understood and signed the consent. Procedure In Detail: The patient was brought to the operating room, placed in supine position. Anes thesia was done without complication. Abdominal area was prepped and draped in a sterile fashion. M arcaine 0.5% was injected for local anesthetic, followed by sharp incision of the skin in the infraum bilical region. Incision was carried down to fascia, which was opened under direct vision. Peritone um was encountered. Opened under direct vision. Vicryl #1 placed inside the fascia. Rajesh trocar was carefully introduced. No bleeding was obtained. I placed 3 more trocars, 5 mm each one of them, 1 in epigastric area and 2 in the right upper quadrant using the same technique, which consisted of local anesthetic, sharp incision of the skin, introduction of the trocars under direct vision. This allowed me to put a grasper in the fundus of the gallbladder and another grasper in the infundibulum, retracted the gallbladder in the inferolateral fashion exposing the triangle of Calot, obtaining cri tical view. Cystic duct and cystic artery were clearly surface isolated free circumferentially and a connection between those and the gallbladder were clearly identified. I proceeded to ligate those b y using at least 3 clips proximal, 1 clip distal, ligation in the middle. Same was done with the cys tic artery. Small little branch of the cystic artery was also ligated using the same technique. Hep atic arteries and common bile duct were protected at all times. Gallbladder was removed from the lashay er using Bovie cauterizer and removed from abdominal cavity using an Endo Catch through the umbilical incision. The area was inspected once again, no bile leak. No bleeding. At that moment, I proceed ed to remove the trocars under direct vision. Deflated pneumoperitoneum. Closed the fascia with #1 Vicryl. Irrigated subcutaneous tissue, closed that with 3-0 chromic and the skin with 3-0 chromic an d Steri-Strip. Sponge count and instrument count correct. Since she has multiple allergies to local anesthetic, we decided not to inject local anesthetic. The patient was sent in the way to recovery in stable condition. ALIA/KELLY Voice ID: [id number] Report ID: [id number]
[2024-03-26] MEDS: HYDROCODONE/APAP 5/325 MG TAB PO PRN (12:55)
[2024-03-26] MEDS: PIPER TAZO 3.375 GM in NA CHLORIDE 0.9% 100 ML IV SCH (17:46)
[2024-03-26] MEDS: methocarbamoL 500 MG TAB PO PRN (19:03)
[2024-03-27 01:18] VITALS: O2SAT 97
[2024-03-27 02:31] VITALS: BMI 21.1
[2024-03-27 06:46] LABS: Absolute Lymphocytes (CBC) 1.6 K/uL (0.7-4.9); Absolute Monocytes 0.7 K/uL (0.1-1.3); Absolute Neutrophil 4.1 K/uL (1.8-8.0); Basophils % 0.4 % (0-1.3); Eosinophils % 0.6 % (0-4.4); Hematocrit 35.6 % (36.0-45.0); Hemoglobin 11.8 g/dL (12.0-15.0); Lymphocytes % 25.2 % (15.3-44.8); MCH 26.6 pg (27.0-35.0); MCV 80.6 fL (80-100); MPV 8.1 fL (7.6-11.3); Monocytes % 10.2 % (3.3-12.3); Neutrophils % 63.6 % (41.7-73.7); Nucleated Red Blood Cells % 0.1 % (0-0); Platelets 251 thou/uL (152-406); RBC Red Blood Cell Count 4.42 M/uL (3.86-4.86); Red Cell Distribution Width 15.3 % (12.1-15.2)
[2024-03-27 07:21] LABS: Albumin 2.9 g/dL (3.4-5.0); Anion Gap 8.5 mEq/L (5.0-15.0); Bilirubin Total 1.6 mg/dL (0.2-1.0); Globulin 2.9 g/dL (2.3-3.5); Potassium 3.5 mEq/L (3.5-5.1); Protein, Total 5.8 g/dL (6.4-8.2)
[2024-03-27] MEDS ORDERED: SODIUM CHLORIDE 0.9% 10ML INJ IV PRN (10:08)
--- NOTE | 2024-03-27 10:10 | P.PN ---
Date of Service: 03/27/24 Subjective reports gas, encouraged ambuation, start clear liquid diet, Review of Systems 10-point ROS is otherwise unremarkable Physical Examination - Vital Signs reviewed - Physical Exam General: Alert, In no apparent distress, facial grimace, HEENT: Atraumatic, Normocephalic Respiratory: Clear to auscultation bilaterally, Normal air movement Cardiovascular: Normal pulses, Regular rate/rhythm, unlabored Capillary refill: <2 Seconds, no edema Gastrointestinal: Soft and benign, W/out hepatosplenomegaly, Tenderness mild distention Musculoskeletal: No clubbing, No swelling Integumentary: No rashes, No breakdown Neurological: Normal speech, Normal strength at 5/5 x4 extr, Cranial nerves 3-12 intact, Normal reflexes 2+, Normal affect Lymphatics: No axilla or inguinal lymphadenopathy Assessment and Plan - Problems (Diagnosis) Acute cholecystitis Pain control IV hydration Started on Zosyn Surgical consulted Dr. Cuba S/p jeremi loyd 03/27 History of ADD Resume home med GI/DVT prophylaxis Advanced directive full code Discharge Plan: Home Plan to discharge in: 48 Hours - Advance Directives Does patient have a Living Will: No Does patient have a Durable POA for Healthcare: No - Code Status/Comfort Care Code Status: Full Code Time Spent Managing Pts Care (In Minutes): 35 <Kelsi Wu - Last Filed: 03/27/24 12:20> Chart has been reviewed. Events of the last 24 hours have been noted. Case discussed with ADITI. I performed a substantial part of the MDM during this patient's care today. I personally made or approved the documented management plan and acknowledge its risk of complications. I agree with the findings and documentation provided in the ADITI's notes Patient continues to improve. Her clinical symptoms much better. Repeat labs in a.m. and possible discharge home. <Alex Rosario - Last Filed: 03/29/24 03:33>
[2024-03-27] MEDS: SIMETHICONE 125 MG TAB PO PRN (15:14)
[2024-03-27] MEDS: ACETAMINOPHEN 325 MG TABLET PO PRN (19:35)
[2024-03-27] MEDS: PANTOPRAZOLE 40 MG INJ IVP SCH (21:31)
--- NOTE | 2024-03-28 07:46 | P.PN ---
Subjective Date of Service: 03/28/24 Chief Complaint: Cholecystitis <Toña Vale Gary - Last Filed: 03/28/24 07:45> Date of Service: 03/28/24 <Cisco Alvarez - Last Filed: 03/28/24 10:32> Physical Examination - Vital Signs Temperature: 97.8 F Blood Pressure: 116/67 Pulse: 67 Respirations: 16 Pulse Ox (%): 97 <Toña Vale - Last Filed: 03/28/24 07:45> Assessment And Plan - Plan - Problems (Diagnosis) (1) Cholecystitis Current Visit: Yes Status: Acute Plan: Acute cholecystitis Pain control N.p.o. postmidnight IV hydration Started on Zosyn Surgical consult Possible lap evert in a.m. 03/28/24 Dr. Cuba following, Lap evert done. LFTs and T. bili up yesterday. Awaiting labs this am. Pt has been up ambulating, no flatus as yet GI/DVT prophylaxis Advanced directive full code Discharge Plan: Home Plan to discharge in: 48 Hours - Advance Directives Does patient have a Living Will: No Does patient have a Durable POA for Healthcare: No - Code Status/Comfort Care Code Status: Full Code <Toña Vale - Last Filed: 03/28/24 07:45> - Plan Pt seen and examined. I agree with the note by the SAND SHOVELER. POD #2 s/p lap chol on 03/26/24. Pt is doing well. LFTs are trending down AST ( 134 <- 418), ALT 237 <- 277) and T. bili (1.1 <- 1.6). Will dc once cleared by Gen surgery. <Cisco Alvarez - Last Filed: 03/28/24 10:32>
[2024-03-28 09:29] LABS: Absolute Eosinophils 0.1 K/uL (0-0.5); Absolute Lymphocytes (CBC) 1.9 K/uL (0.7-4.9); Absolute Monocytes 0.6 K/uL (0.1-1.3); Absolute Neutrophil 4.5 K/uL (1.8-8.0); Basophils % 0.6 % (0-1.3); Eosinophils % 0.9 % (0-4.4); Hematocrit 37.1 % (36.0-45.0); Hemoglobin 12.1 g/dL (12.0-15.0); Lymphocytes % 26.6 % (15.3-44.8); MCH 26.5 pg (27.0-35.0); MCHC 32.7 g/dL (32.0-36.0); MPV 8.6 fL (7.6-11.3); Monocytes % 7.9 % (3.3-12.3); Nucleated Red Blood Cells % 0.1 % (0-0); Platelets 252 thou/uL (152-406); RBC Red Blood Cell Count 4.58 M/uL (3.86-4.86); Red Cell Distribution Width 15.7 % (12.1-15.2)
[2024-03-28 09:52] LABS: Albumin/Globulin Ratio 0.9 (1.1-1.8); Anion Gap 7.4 mEq/L (5.0-15.0); Bilirubin Total 1.1 mg/dL (0.2-1.0); Globulin 3.2 g/dL (2.3-3.5); Magnesium 1.8 mg/dL (1.6-2.4); Potassium 3.4 mEq/L (3.5-5.1); Protein, Total 6.2 g/dL (6.4-8.2)
--- NOTE | 2024-03-28 10:55 | P.PN ---
Subjective Date of Service: 03/28/24 Chief Complaint: Cholecystitis, symotomatic cholelithiasis Subjective: Tolerating diet, Ambulating, Improving Review of Systems General: Unremarkable Eyes: Unremarkable ENT: Unremarkable Respiratory: Unremarkable Cardiovascular: Unremarkable Gastrointestinal: No Distention, As per HPI Genitourinary: Unremarkable Integumentary: Unremarkable Neurological: Unremarkable Physical Examination - Vital Signs Temperature: 97.4 F Blood Pressure: 117/64 Pulse: 60 Respirations: 16 Pulse Ox (%): 99 - Physical Exam General: Alert, In no apparent distress, Oriented x3, Cooperative HEENT: Normocephalic, PERRLA, EOMI, Sclerae nonicteric Neck: Supple, JVD not distended Respiratory: Normal air movement Cardiovascular: No edema, Normal pulses Gastrointestinal: Soft and benign (gauze removed , sterile strips intact.), No tenderness Musculoskeletal: No erythema, No tenderness, No warmth Integumentary: No rashes, No breakdown, No erythema, No warmth, No cyanosis Neurological: Normal speech - Studies LFT improved. WE reccmended to her GI evaluation as an outpatient. Assessment And Plan - Plan No heavy lifting REturn to work in light duty in a week Discharge Plan: Home
--- NOTE | 2024-03-28 11:06 | P.DS ---
Admission Date: 03/27/24 Discharge Date: 03/28/24 Reason for Admission: Cholecystitis, symptomatic cholelithiasis Consultations: Dr. Cuba Procedures: Laporoscopic Cholecystectomy Brief History of Present Illness: 24-year-old female came with past medical history of ADD, prolonged QT who came in with complaints of Abdominal Pain. The patient presents with abdominal pain, right flank, and right side of abdomen tenderness. Pain is 5 out of 10 in severity in the ER at the time of interview. Denies any nausea vomiting. No fever or chills. No sick contacts. Patient was assessed in the ER and was found to have acute cholecystitis and was admitted for further management. Hospital Course: Ms. Alford did well over the course of her hospitalization, she was evaluated by Dr. Cuba. He performed a laparoscopic cholecystectomy. She is tolerating p.o., ambulating, and is eager to go home. She did have some transient elevation in her T. bili and transaminase levels. On this morning's draw they are trending down. She will be discharged with Ultracet and Augmentin per Dr. Cuba's request and will follow-up with him in 1 week. <Toña Vale - Last Filed: 03/28/24 11:12> Admission Date: 03/27/24 Discharge Date: 03/28/24 Hospital Course: Pt seen and examined. I agree with the note by the PRODUCT ACCOUNTANT. LFTs are trending down. Will dc pt with Augmentin for 10 days and oxycodone given transaminitis. Pt will f/u with PCP and Gen surgeon in clinic. <Cisco Alvarez - Last Filed: 03/28/24 14:30> Disposition: ROUTINE DISCHARGE Discharge Condition: GOOD Vital Signs/Physical Exam: Temp Pulse Resp BP Pulse Ox 97.4 F 60 16 117/64 99 03/28/24 10:55 03/28/24 10:55 03/28/24 10:55 03/28/24 10:55 03/28/24 10:55 General: Alert, In no apparent distress, Oriented x3 HEENT: Atraumatic, Normocephalic Neck: Supple, 2+ carotid pulse no bruit Respiratory: Clear to auscultation bilaterally Cardiovascular: No edema, Normal pulses, Regular rate/rhythm Capillary refill: <2 Seconds Gastrointestinal: Soft and benign, Tenderness (mild generalized) Musculoskeletal: No clubbing, No swelling Integumentary: No rashes Neurological: Normal gait, Normal speech, Normal tone, Normal affect Lymphatics: No axilla or inguinal lymphadenopathy External genitalia: Deferred Rectal: Deferred Laboratory Data at Discharge: WBC 7.10 thou/uL (4.3-10.9) 03/28/24 08:59 Hgb 12.1 g/dL (12.0-15.0) 03/28/24 08:59 Hct 37.1 % (36.0-45.0) 03/28/24 08:59 Plt Count 252 thou/uL (152-406) 03/28/24 08:59 Sodium 139 mEq/L (136-145) 03/28/24 08:59 Potassium 3.4 mEq/L (3.5-5.1) L 03/28/24 08:59 BUN 4 mg/dL (7-18) L 03/28/24 08:59 Creatinine 0.69 mg/dL (0.55-1.02) 03/28/24 08:59 Glucose 121 mg/dL (74-106) H 03/28/24 08:59 Magnesium 1.8 mg/dL (1.6-2.4) 03/28/24 08:59 Total Bilirubin 1.1 mg/dL (0.2-1.0) H 03/28/24 08:59 AST 134 U/L (15-37) H 03/28/24 08:59 ALT 237 U/L (13-56) H 03/28/24 08:59 Alkaline Phosphatase 99 U/L (45-117) 03/28/24 08:59 Lipase 29 U/L (13-75) 03/25/24 17:54 <Vale,Toña Gary - Last Filed: 03/28/24 11:12> Vital Signs/Physical Exam: Temp Pulse Resp BP Pulse Ox 97.8 F 52 22 H 115/67 99 03/28/24 12:00 03/28/24 12:00 03/28/24 12:00 03/28/24 12:00 03/28/24 12:00 Laboratory Data at Discharge: WBC 7.10 thou/uL (4.3-10.9) 03/28/24 08:59 Hgb 12.1 g/dL (12.0-15.0) 03/28/24 08:59 Hct 37.1 % (36.0-45.0) 03/28/24 08:59 Plt Count 252 thou/uL (152-406) 03/28/24 08:59 Sodium 139 mEq/L (136-145) 03/28/24 08:59 Potassium 3.4 mEq/L (3.5-5.1) L 03/28/24 08:59 BUN 4 mg/dL (7-18) L 03/28/24 08:59 Creatinine 0.69 mg/dL (0.55-1.02) 03/28/24 08:59 Glucose 121 mg/dL (74-106) H 03/28/24 08:59 Magnesium 1.8 mg/dL (1.6-2.4) 03/28/24 08:59 Total Bilirubin 1.1 mg/dL (0.2-1.0) H 03/28/24 08:59 AST 134 U/L (15-37) H 03/28/24 08:59 ALT 237 U/L (13-56) H 03/28/24 08:59 Alkaline Phosphatase 99 U/L (45-117) 03/28/24 08:59 Lipase 29 U/L (13-75) 03/25/24 17:54 <Cisco Alvarez - Last Filed: 03/28/24 14:30> Diet: Low sodium Activity: No lifting more than 10 lbs <Toña Vale - Last Filed: 03/28/24 11:12> <Cisco Alvarez - Last Filed: 03/28/24 14:30> Home Medications: Amox/Clavulanate [Augmentin 875-125 Tab] 1 each PO BID 10 Days #20 tab 03/28/24 Oxycodone HCl 5 mg PO Q4H 3 Days #18 tab 03/28/24 Pantoprazole [Protonix Tab] 40 mg PO DAILY 30 Days #30 tab 03/28/24 New Medications: Amox/Clavulanate [Augmentin 875-125 Tab] 1 each PO BID 10 Days #20 tab Oxycodone HCl 5 mg PO Q4H 3 Days #18 tab Pantoprazole [Protonix Tab] 40 mg PO DAILY 30 Days #30 tab Physician Discharge Instructions: Keep surgical area dry and clean for 48h then may remove outer gauze and shower but keep sterile strips intact 24-year-old female came with past medical history of ADD, prolonged QT who came in with complaints of Abdominal Pain. The patient presents with abdominal pain right flank and right side of abdomen. Was noted to have acute cholecystitis. She was evaluated by surgery, status post lap cholecystectomy, condition improved with IV fluids, as needed analgesics, as needed antiemetics, antibiotics. Patient tolerating diet, stable for discharge to home with follow- up appointment with primary care physician. Follow-up with surgery after discharge, no heavy lifting greater than 10, follow-up with surgery in 1 PROBLEM: Acute cholecystitis, evaluated by Dr. Cuba, status post laparoscopic cholecystectomy, follow-up with surgery after discharge, no heavy lifting greater than 10 LBS No operating or driving heavy equipment while taking narcotic Narcotics may cause constipation, may need stool softeners Continue home medicines as previously prescribed GOAL: Clear understanding of disease process INSTRUCTIONS: Physician Discharge Instructions: -Follow-up with PCP in 1 to 2 weeks -Please call Dr. Cuba in one week -Please call nursing station at [phone] if any nursing or medication questions -Return to the emergency room if symptoms worsen Followup: Cole Cuba MD [ACTIVE - CAN ADMIT] - 1 Week NONE,NONE [Primary Care Provider] -
[2024-03-28 12:31] VITALS: BP 115/67; TEMP 97.8
--- NOTE | 2024-03-28 14:21 | EKG ---
Test Date: 2024-03-25 Test Time: 21:13:01 Laserist: MARIYA MEASUREMENT RESULTS: Intervals: Rate: 75 SD: 124 QRSD: 86 QT: 392 QTc: 437 [place]: P: 43 SD: 124 QRS: 55 T: 49 INTERPRETIVE STATEMENTS: Normal sinus rhythm Normal ECG Compared to ECG 07/06/2017 15:00:05 No significant changes Electronically Signed On 03-28-24 14:16:02 CDT by Roger Martin
== END 2024-03-28 13:23 | disposition home or self-care (01) | DRG 419 ==
LOC: ER 17:17 → ERHOLD 22:45 → 2ND 23:54 → OBSVTOIN 03-27 13:57
PROVIDERS: ADMIT Family Medicine; ATTEND Hospitalist
PROC: 0FT44ZZ Resection of Gallbladder, Percutaneous Endoscopic Approach (ICD-10-PCS; principal; 2024-03-26 10:00)
DX: K80.00 Calculus of gallbladder with acute cholecystitis without obstruction (principal); F90.9 Attention-deficit hyperactivity disorder, unspecified type; R74.01 Elevation of levels of liver transaminase levels; Z88.8 Allergy status to other drugs, medicaments and biological substances; Z79.899 Other long term (current) drug therapy
CPT/HCPCS: 36415; 74177; 76705; 80053; 81001; 81025; 83690; 83735; 85025; 88304; 93005; 94010; 96361; 96365; 96366; 96375; 99285; C9113; G0378; J1100; J1170; J1200; J2250; J2405; J2543; J2550; J2704; J2765; J3010; J7030; J7120

== ENCOUNTER 2025-07-21 04:32 | Emergency (ER) | payer OTHER ==
[2025-07-21] MEDS ORDERED: ONDANSETRON 4 MG/2 ML VIAL ONE (05:02)
[2025-07-21] MEDS ORDERED: HYDROMORPHONE HCL 0.5 MG/0.5 ML INJ ONE (05:02)
[2025-07-21] MEDS ORDERED: FAMOTIDINE 20 MG/2 ML VIAL IV ONE (05:11)
[2025-07-21 05:16] LABS: Absolute Lymphocytes (CBC) 3.4 K/uL (0.7-4.9); Hematocrit 45.3 % (36.0-45.0); Hemoglobin 15.8 g/dL (12.0-15.0); MCH 29.9 pg (27.0-35.0); MCHC 34.9 g/dL (32.0-36.0); MCV 85.5 fL (80-100); MPV 8.0 fL (7.6-11.3); Nucleated RBC Absolute Count 0.0 (0-0); Nucleated Red Blood Cells % 0.3 % (0-0); RBC Red Blood Cell Count 5.29 M/uL (3.86-4.86); White Blood Count 10.10 thou/uL (4.3-10.9)
[2025-07-21 05:21] LABS: Sqamous Epithelial <5 /HPF (None Seen); Urine Culture Reflex Order NOT NEEDED; Urine Microscopic Reflex YN ORDER UMIC
[2025-07-21 05:35] LABS: ALT/SGPT 31.0 U/L (13-56); AST/SGOT 18.0 U/L (15-37); Albumin 3.7 g/dL (3.4-5.0); Albumin/Globulin Ratio 1.0 (1.1-1.8); Alkaline Phosphatase 67.0 U/L (45-117); Anion Gap 11.9 mEq/L (5.0-15.0); BUN Blood Urea Nitrogen 6.0 mg/dL (7-18); Globulin 3.7 g/dL (2.3-3.5); Glucose Level 82.0 mg/dL (74-106); Lipase 25.0 U/L (13-75); Potassium 3.9 mEq/L (3.5-5.1)
[2025-07-21] MEDS ORDERED: NA CHLORIDE 0.9% 1,000 ML ONE (05:39)
[2025-07-21] MEDS ORDERED: MAGNES/ALUMIN/SIMET 30ML UCUP ONE (05:39)
--- NOTE | 2025-07-21 06:36 | EDPHYS ---
Physician Documentation [facility] Name: Audrey Alford Age: 25 yrs Sex: Female : 2000 Arrival Date: 07/21/2025 Time: 04:32 Bed 5 Private MD: ED Physician Chan Regalado HPI: 07/21 04:47 This 25 yrs old Female presents to ER via Ambulatory with complaints of Abdominal Pain, tt7 Nausea/Vomiting. 04:47 Patient reports left upper abdominal pain that started this evening, pain is tt7 intermittent, moderate in severity, crampy in character, pain is associate with nausea and multiple episodes of nonbloody nonbilious vomiting, denies fever, past medical history includes cholecystectomy. 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 - Infectious Disease History:: Denies. - Social history:: Smoking status: Reported history of juuling and/or vaping. Patient uses alcohol, only on a social basis. Patient/guardian denies using street drugs. ROS: 04:49 Constitutional: negative for fever. Cardiovascular: negative for chest pain. tt7 Respiratory: negative for shortness of breath. MS/Extremity: negative for injury and deformity. Skin: negative for rash. Neuro: negative for focal weakness. 04:49 Abdomen/GI: Positive for abdominal pain, nausea and vomiting, Exam: 04:54 Constitutional: vital signs reviewed, well appearing. Head/Face: normocephalic, tt7 atraumatic. Eyes: no conjunctival injection, anicteric sclerae. ENT: mucus membranes moist. Neck: trachea midline, no JVD, no meningismus. Chest/axilla: normal chest wall appearance and motion, nontender, no crepitus. Cardiovascular: regular rate and rhythm, no murmurs, no rubs, no lower extremity edema. Respiratory: normal respiratory effort, no accessory muscle use, lungs CTAB. Abdomen/GI: soft, nondistended, mild LUQ tenderness, no guarding or rebound, negative Talley's sign, no McBurney point tenderness. Back: normal ROM. Skin: warm, dry, intact, normal turgor, normal color, no rash. MS/ Extremity: normal ROM of extremities, no gross deformities. Neuro: alert and oriented with appropriate mental status, normal speech, follows commands, no focal neurologic deficits. Vital Signs: 04:53 BP 139 / 84; Pulse 116; Resp 20; Temp 98.7; Pulse Ox 99% ; Weight 65.77 kg; Pain 9/10; bm8 06:20 BP 101 / 59; Pulse 70; Resp 17; Temp 98.7; Pulse Ox 96% ; Pain 0/10; bm8 06:35 BP 112 / 68; Pulse 96; Resp 17; Temp 98.7; Pulse Ox 99% ; Pain 0/10; bm8 04:53 Pain Scale: Adult bm8 06:20 Pain Scale: Adult bm8 06:35 Pain Scale: Adult bm8 Huxford Coma Score: 05:14 Eye Response: spontaneous(4). Motor Response: obeys commands(6). Verbal Response: bm8 oriented(5). Total: 15. 06:20 Eye Response: to voice(3). Motor Response: obeys commands(6). Verbal Response: bm8 oriented(5). Total: 14. 06:35 Eye Response: spontaneous(4). Motor Response: obeys commands(6). Verbal Response: bm8 oriented(5). Total: 15. MDM: 04:38 Medical Screening Exam initiated tt7 04:49 Differential diagnosis: Nonspecific abd pain, gastritis, pancreatitis, Alcohol tt7 intoxication. Data reviewed: vital signs, nurses notes, old medical records, lab test result(s). 04:55 ED course: Patient well-appearing with stable vital signs, abdominal exam reassuring, tt7 will order standard laboratory studies for abdominal pain, administer IV opioid and antiemetic, and reassess. 05:39 ED course: Workup overall reassuring, no significant lab abnormality other than tt7 elevated ethanol level of 143, on reassessment patient pain resolved after Dilaudid, nausea was controlled with Zofran, she does state at this time that the pain is starting to return and she is becoming nauseous again, will treat with IV droperidol, normal saline bolus, and oral Maalox. 06:34 ED course: Patient tolerating oral intake in the emergency department, symptoms have tt7 resolved, likely alcoholic gastritis, after completion of the patient's emergency department evaluation, I do not suspect a life-threatening or disabling process. Patient is medically stable and not in need of emergent medical intervention. I had a detailed discussion with the patient and friend regarding the historical points, exam findings, emergency department evaluation, diagnostic results, and the discharge diagnosis. I instructed the patient on outpatient management of their condition. I discussed the need for outpatient follow-up with a primary care physician. I informed the patient on return precautions, including the need to return to the ED if symptoms do not improve, worsen, or if there are any questions or concerns that arise at home. The patient was discharged in stable condition. 07/21 04:38 Order name: CBC with Diff; Complete Time: 05:36 tt7 07/21 04:38 Order name: CMP; Complete Time: 05:36 tt7 07/21 04:38 Order name: Lipase; Complete Time: 05:36 tt7 07/21 04:38 Order name: Test, Serum; Complete Time: 05:48 tt7 07/21 04:54 Order name: Ethanol; Complete Time: 05:36 tt7 07/21 05:08 Order name: UA Rfx Dayron Cult if indicated; Complete Time: 05:36 bm8 07/21 04:38 Order name: IV Saline Lock; Complete Time: 05:14 tt7 07/21 04:38 Order name: Labs collected and sent; Complete Time: 05:14 tt7 07/21 05:48 Order name: PO challenge; Complete Time: 06:19 tt7 Administered Medications: 05:05 Drug: HYDROmorphone IVP 0.5 mg IVP once Route: IVP; Site: right antecubital; bm8 06:22 Follow up: Response: No adverse reaction bm8 05:06 Drug: Ondansetron IVP 4 mg IVP once; over 2 minutes Route: IVP; Site: right antecubital;bm8 06:22 Follow up: Response: No adverse reaction bm8 05:14 Drug: Famotidine IVP 20 mg IVP once; dilute with 10 mL 0.9% NaCl; give over 2 minutes bm8 Route: IVP; Site: right antecubital; 06:22 Follow up: Response: No adverse reaction bm8 05:44 Drug: Droperidol IVP 1.25 mg IVP once Route: IVP; Site: right antecubital; bm8 06:22 Follow up: Response: No adverse reaction bm8 05:44 Drug: NS 0.9% IV 1000 ml IV at 1 bolus Per protocol; to be given as a bolus over 60 bm8 minutes Route: IV; Rate: 1 bolus; Site: right antecubital; 06:45 Follow up: Response: No adverse reaction; IV Status: Completed infusion bm8 06:11 Drug: Alum-Mag Hydroxide-Simeth PO Suspension (200 mg-200 mg-20 mg/5 mL) 30 ml PO once bm8 Route: PO; 06:22 Follow up: Response: No adverse reaction bm8 Disposition: 06:37 Co-signature as Attending Physician, Chan Regalado DO. tt7 Disposition Summary: 07/21/25 06:35 Discharge Ordered Notes: Location: Home tt7 Problem: new tt7 Symptoms: are resolved tt7 Condition: Stable tt7 Diagnosis - Upper abdominal pain, unspecified tt7 - Nausea with vomiting, unspecified tt7 - Alcohol use, unspecified with intoxication tt7 Followup: tt7 - With: Emergency Department - When: As needed - Reason: Followup: tt7 - With: Private Physician - When: 1 - 2 days - Reason: Recheck today's complaints, Re-evaluation by your physician Discharge Instructions: - Discharge Summary Sheet tt7 - Gastritis, Adult, [id number] tt7 Forms: - Medication Reconciliation Form tt7 - Antibiotic Education tt7 - Prescription Opioid Use tt7 - Patient Portal Instructions tt7 - Leadership Thank You Letter tt7 Prescriptions: - Zofran 4 mg Oral tablet - take 1 tablet ORAL route every 8 hours As needed; 20 tablet; Refills: 0, tt7 Product Selection Permitted - Pepcid 20 mg Oral Tablet - take 1 tablet ORAL route once daily for 10 days; 10 tablet; Refills: 0, Product tt7 Selection Permitted Signatures: Dispatcher [employer] Rafael Kimble RN RN bm8 Chan Regalado DO DO tt7 Corrections: (The following items were deleted from the chart) 04:39 04:39 CBC+H.LAB.BRZ ordered. EDND EDMS 04:39 04:39 COMPREHENSIVE METABOLIC PANEL+C.LAB.BRZ ordered. EDMS EDMS 04:39 04:39 LIPASE+C.LAB.BRZ ordered. EDMS EDMS 04:39 04:39 TEST, SERUM+SC.LAB.BRZ ordered. EDMS EDMS 04:53 04:49 Differential diagnosis: Nonspecific abd pain, gastritis, pancreatitis, Ovarian tt7 cyst, ovarian torsion tt7 04:54 04:54 ETHANOL+C.LAB.BRZ ordered. EDMS EDMS 04:54 04:47 Patient reports left lower quadrant abdominal pain that started this evening, tt7 pain is intermittent, moderate in severity, crampy in character, pain is associate with nausea and multiple episodes of nonbloody nonbilious vomiting, denies fever, past medical history includes cholecystectomy. tt7 04:56 04:49 Data reviewed: vital signs, nurses notes, old medical records, lab test tt7 result(s), radiologic studies, tt7 04:56 04:49 Differential diagnosis: Nonspecific abd pain, gastritis, pancreatitis, Alcohol tt7 intoxication tt7
--- NOTE | 2025-07-21 06:36 | ER ---
Nurse's Notes [facility] Name: Audrey Alford Age: 25 yrs Sex: Female : 2000 Arrival Date: 07/21/2025 Time: 04:32 Bed 5 Private MD: Diagnosis: Upper abdominal pain, unspecified;Nausea with vomiting, unspecified;Alcohol use, unspecified with intoxication Presentation: 07/21 04:53 Chief complaint: Patient states: i have lower left abd pain that started about an hour bm8 ago. it feels better when I push on it. Coronavirus screen: At this time, the client does not indicate any symptoms associated with coronavirus-19. Ebola Screen: Patient negative for fever greater than or equal to 101.5 degrees Fahrenheit, and additional compatible Ebola Virus Disease symptoms Patient denies exposure to infectious person. Patient denies travel to an Ebola-affected area in the 21 days before illness onset. No symptoms or risks identified at this time. Initial Sepsis Screen: Does the patient meet any 2 criteria? No. Patient's initial sepsis screen is negative. Does the patient have a suspected source of infection? No. Patient's initial sepsis screen is negative. Risk Assessment: Do you want to hurt yourself or someone else? Patient reports no desire to harm self or others. Onset of symptoms was July 21, 2025 at 04:00. 04:53 Method Of Arrival: Ambulatory bm8 04:53 Acuity: ADRIANA 3 bm8 Triage Assessment: 04:55 General: Appears in no apparent distress. uncomfortable, Behavior is calm, cooperative, bm8 appropriate for age. Pain: Complains of pain in left lower quadrant Pain currently is 9 out of 10 on a pain scale. EENT: No deficits noted. No signs and/or symptoms were reported regarding the EENT system. Neuro: No deficits noted. Cardiovascular: No deficits noted. Respiratory: No deficits noted. GI: Abdomen is flat, non-distended, Bowel sounds present X 4 quads. Abdomen is tender to palpation in suprapubic area and left lower quadrant Abdomen has rebound tenderness in left lower quadrant Reports nausea, Pain is 9 out of 10 on a pain scale. vomiting. : No deficits noted. Derm: No deficits noted. 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 - Infectious Disease History:: Denies. - Social history:: Smoking status: Reported history of juuling and/or vaping. Patient uses alcohol, only on a social basis. Patient/guardian denies using street drugs. Screenin:14 [facility] ED Fall Risk Assessment (Adult) History of falling in the last 3 months, bm8 including since admission No falls in past 3 months (0 pts) Confusion or Disorientation No (0 pts) Intoxicated or Sedated No (0 pts) Impaired Gait No (0 pts) Mobility Assist Device Used No (0 pt) Altered Elimination No (0 pt) Score/Fall Risk Level 0 - 2 = Low Risk Oriented to surroundings, Maintained a safe environment, Educated pt \T\ family on fall prevention, incl call for assistance when getting out of bed, Assessed \T\ reinforced patient's understanding of fall precautions, Provided non-skid footwear, Hourly rounding (assess needs \T\ fall precautionary measures) done, Used ambulatory aids as needed (educated on \T\ assisted with), Used gait belt as appropriate. Abuse screen: Denies threats or abuse. Nutritional screening: No deficits noted. Tuberculosis screening: No symptoms or risk factors identified. Assessment: 05:14 Reassessment: see triage assessment. bm8 06:20 General: Appears in no apparent distress. comfortable, Behavior is calm, cooperative, bm8 appropriate for age. Pain: Denies pain. Neuro: No deficits noted. Cardiovascular: No deficits noted. Respiratory: No deficits noted. GI: No deficits noted. No signs and/or symptoms were reported involving the gastrointestinal system. Patient currently denies nausea, pain, pt provided with 8 oz of water for PO challenge. : No signs and/or symptoms were reported regarding the genitourinary system. EENT: No deficits noted. No signs and/or symptoms were reported regarding the EENT system. Derm: No deficits noted. No signs and/or symptoms reported regarding the dermatologic system. 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 No signs and/or symptoms reported regarding the musculoskeletal system. 06:35 Reassessment: Patient appears in no apparent distress at this time. Patient and/or bm8 family updated on plan of care and expected duration. Pain level reassessed. Patient is alert, oriented x 3, equal unlabored respirations, skin warm/dry/pink. Patient denies pain at this time. Patient states feeling better. Patient states symptoms have improved. Vital Signs: 04:53 BP 139 / 84; Pulse 116; Resp 20; Temp 98.7; Pulse Ox 99% ; Weight 65.77 kg; Pain 9/10; bm8 06:20 BP 101 / 59; Pulse 70; Resp 17; Temp 98.7; Pulse Ox 96% ; Pain 0/10; bm8 06:35 BP 112 / 68; Pulse 96; Resp 17; Temp 98.7; Pulse Ox 99% ; Pain 0/10; bm8 04:53 Pain Scale: Adult bm8 06:20 Pain Scale: Adult bm8 06:35 Pain Scale: Adult bm8 Geetha Coma Score: 05:14 Eye Response: spontaneous(4). Motor Response: obeys commands(6). Verbal Response: bm8 oriented(5). Total: 15. 06:20 Eye Response: to voice(3). Motor Response: obeys commands(6). Verbal Response: bm8 oriented(5). Total: 14. 06:35 Eye Response: spontaneous(4). Motor Response: obeys commands(6). Verbal Response: bm8 oriented(5). Total: 15. ED Course: 04:36 Patient arrived in ED. gm2 04:37 Chan Regalado DO is Attending Physician. tt7 04:53 Rafael Ivory, RN is Primary Nurse. bm8 04:55 Triage completed. bm8 04:55 Arm band placed on right wrist. bm8 05:14 Patient has correct armband on for positive identification. Placed in gown. Bed in low bm8 position. Call light in reach. Side rails up X 1. Adult w/ patient. Client placed on continuous cardiac and pulse oximetry monitoring. NIBP monitoring applied. Pulse ox on. NIBP on. Door closed. Noise minimized. Warm blanket given. Verbal reassurance given. Head of bed elevated. 05:14 No provider procedures requiring assistance completed. Initial lab(s) drawn, by me, bm8 sent to lab. Urine collected: clean catch specimen, clear. Patient maintains SpO2 saturation greater than 95% on room air. 05:14 Inserted saline lock: 20 gauge in right antecubital area, using aseptic technique. bm8 Blood collected. Flushed with 10 mL NS. 06:35 Provided Education on: post er care. bm8 06:35 IV discontinued, intact, bleeding controlled, No redness/swelling at site. Pressure bm8 dressing applied. Administered Medications: 05:05 Drug: HYDROmorphone IVP 0.5 mg IVP once Route: IVP; Site: right antecubital; bm8 06:22 Follow up: Response: No adverse reaction bm8 05:06 Drug: Ondansetron IVP 4 mg IVP once; over 2 minutes Route: IVP; Site: right antecubital;bm8 06:22 Follow up: Response: No adverse reaction bm8 05:14 Drug: Famotidine IVP 20 mg IVP once; dilute with 10 mL 0.9% NaCl; give over 2 minutes bm8 Route: IVP; Site: right antecubital; 06:22 Follow up: Response: No adverse reaction bm8 05:44 Drug: Droperidol IVP 1.25 mg IVP once Route: IVP; Site: right antecubital; bm8 06:22 Follow up: Response: No adverse reaction bm8 05:44 Drug: NS 0.9% IV 1000 ml IV at 1 bolus Per protocol; to be given as a bolus over 60 bm8 minutes Route: IV; Rate: 1 bolus; Site: right antecubital; 06:45 Follow up: Response: No adverse reaction; IV Status: Completed infusion bm8 06:11 Drug: Alum-Mag Hydroxide-Simeth PO Suspension (200 mg-200 mg-20 mg/5 mL) 30 ml PO once bm8 Route: PO; 06:22 Follow up: Response: No adverse reaction bm8 Medication: 05:14 VIS not applicable for this client. bm8 Outcome: 06:35 Discharge ordered by . tt7 06:40 Discharged to home ambulatory, with family, bm8 06:40 Condition: stable 06:40 Discharge instructions given to patient, family, Instructed on discharge instructions, follow up and referral plans. no drinking with medication, no driving heavy equipment, medication usage, safety practices, Demonstrated understanding of instructions, follow-up care, medications, Prescriptions given X 2, 06:44 Patient left the ED. bm8 Signatures: Kacie Marrero gm2 Rafael Ivory RN RN bm8 Chan Regalado DO DO tt7
[2025-07-21 07:03] VITALS: TEMP 98.7
[2025-07-21 07:05] VITALS: BP 112/68; O2SAT 99
== END 2025-07-21 06:44 | disposition home or self-care (01) ==
LOC: ER 04:32
DX: R10.12 Left upper quadrant pain (principal); R11.2 Nausea with vomiting, unspecified; F10.929 Alcohol use, unspecified with intoxication, unspecified
CPT/HCPCS: 96361; 85025; 81001; 36415; 84703; 83690; 80053; 96375; 96374; 99284; 82077; J1171; J2405; J1790; J7030

== ENCOUNTER 2025-07-22 00:43 | Emergency (ER) | payer OTHER ==
[2025-07-22] MEDS ORDERED: ONDANSETRON 4 MG/2 ML VIAL ONE (01:00)
[2025-07-22] MEDS ORDERED: MORPHINE 2 MG/ML SYR ONE ×2 (01:00→01:20)
[2025-07-22] MEDS ORDERED: NA CHLORIDE 0.9% 1,000 ML ONE (01:01)
[2025-07-22 01:16] LABS: Absolute Lymphocytes (CBC) 2.5 K/uL (0.7-4.9); Hematocrit 45.3 % (36.0-45.0); Hemoglobin 15.4 g/dL (12.0-15.0); MCH 29.6 pg (27.0-35.0); MCHC 34.0 g/dL (32.0-36.0); MCV 86.9 fL (80-100); MPV 8.2 fL (7.6-11.3); Nucleated RBC Absolute Count 0.0 (0-0); Nucleated Red Blood Cells % 0.2 % (0-0); RBC Red Blood Cell Count 5.21 M/uL (3.86-4.86); White Blood Count 8.90 thou/uL (4.3-10.9)
[2025-07-22 01:38] LABS: ALT/SGPT 28 U/L (13-56); AST/SGOT 16 U/L (15-37); Albumin 3.8 g/dL (3.4-5.0); Albumin/Globulin Ratio 1.0 (1.1-1.8); Alkaline Phosphatase 71 U/L (45-117); Anion Gap 7.7 mEq/L (5.0-15.0); BUN Blood Urea Nitrogen 8 mg/dL (7-18); Globulin 3.7 g/dL (2.3-3.5); Glucose Level 74 mg/dL (74-106); Lipase 21 U/L (13-75); Potassium 3.7 mEq/L (3.5-5.1)
[2025-07-22 01:43] LABS: HCG, Quantitative < 1 mIU/mL (1-3)
[2025-07-22 01:45] LABS: Sqamous Epithelial <5 /HPF (None Seen); Urine Culture Reflex Order NOT NEEDED; Urine Microscopic Reflex YN ORDER UMIC
[2025-07-22] MEDS ORDERED: KETOROLAC 30 MG/ML INJ ONE (01:54)
[2025-07-22] MEDS ORDERED: METOCLOPRAMIDE 10 MG/2mL INJ ONE (02:06)
[2025-07-22] MEDS ORDERED: NA CHLORIDE 0.9% 50 ML ONE (02:07)
[2025-07-22] MEDS ORDERED: DIPHENHYDRAMINE 50 MG/ML VIAL ONE (02:07)
--- NOTE | 2025-07-22 03:10 | RAD REPORT ---
Procedure description: CT ABDOMEN PELVIS WITH IV CONTRAST CLINICAL INDICATION: left lower abdomen pain TECHNIQUE: Axial imaging obtained through the abdomen and pelvis. Sagittal and coronal reconstruction s obtained. CONTRAST: Nonionic IV contrast. See hospital information system for dose COMPARISON: None FINDINGS: CT abdomen/pelvis: The lung bases are clear of consolidation. No pleural or pericardial effusions and the heart size is normal. The gallbladder has been removed. The spleen is within normal limits in size and appearance. The live r appears normal. The portal vein is patent. The pancreas and adrenal glands are normal. Both kidneys are normal without evidence of renal stone disease. The bladder is unremarkable. The aorta is normal. No free air. Small volume of free fluid in the pelvis. An IUD is again noted within the endometrial cavity. The uterus is normal in appearance. The left ovary is normal. There is a cystic area involving the right ovary measuring approximately 3. 4 x 2.9 cm. This has density measurements of 15 consistent with a simple cyst. No follow-up is recommended based on these findings. The appendix is normal. No bowel distention or inflammation. No diffuse constipation. IMPRESSION: 1: Small volume of free fluid in the pelvis. 2: Right ovarian 3.4 cm cyst. 3: IUD within the uterus. 4: Cholecystectomy. RADIATION DOSE REDUCTION: This exam was performed according to our departmental dose-optimization pro gram which includes automated exposure control, adjustment of the mA and/or kV according to patient size and/or use of iterative reconstruction technique. Electronically signed by: Donte Sheppard MD 07/22/2025 03:05 AM CDT Due to temporary technical issues with the PACS/SureVisit reporting system, reports are being sri d by the in-house radiologist without review as a courtesy to ensure prompt reporting the interpreting radiologist is fully responsible for the content of the report. Transcribed Date/Time: 07/22/2025 3:10 AM
--- NOTE | 2025-07-22 03:18 | EDPHYS ---
Physician Documentation [facility] Name: Audrey Alford Age: 25 yrs Sex: Female : 2000 Arrival Date: 07/22/2025 Time: 00:43 Bed 7 Private MD: ED Physician Chan Regalado HPI: 07/22 01:00 This 25 yrs old Female presents to ER via Ambulatory with complaints of Abdominal Pain, cp Vomiting. 01:00 The patient presents with abdominal pain in the left lower quadrant. cp 01:00 Onset: The symptoms/episode began/occurred yesterday, seen in this ED yesterday for cp similar complaint. denies vaginal bleeding, denies vaginal discharge, denies concern for STD. 01:00 Associated signs and symptoms: Pertinent negatives: fever, vomiting. Severity of pain: cp in the emergency department the pain is unchanged despite home interventions. 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 - Infectious Disease History:: Denies. - Social history:: Smoking status: Reported history of juuling and/or vaping. Patient uses alcohol, occasionally. Patient/guardian denies using street drugs. ROS: 01:05 Constitutional: Negative for body aches, chills, fever, poor PO intake, cp 01:05 Eyes: Negative for injury, pain, redness, and discharge, cp 01:05 Cardiovascular: Negative for chest pain, palpitations, 01:05 Respiratory: Negative for cough, shortness of breath, wheezing, 01:05 Abdomen/GI: Positive for abdominal pain, of the left lower quadrant, Negative for vomiting, diarrhea, constipation, 01:05 : Negative for urinary symptoms, pelvic pain, flank pain, vaginal bleeding, vaginal discharge, 01:05 Neuro: Negative for altered mental status, 01:05 All other systems are negative, Exam: 01:10 Constitutional: The patient appears in no acute distress, alert, awake, non-toxic, well cp developed, well nourished, 01:10 Head/Face: Normocephalic, atraumatic. cp 01:10 Eyes: Periorbital structures: appear normal, Conjunctiva: normal, no exudate, no injection, Sclera: no appreciated abnormality, Lids and lashes: appear normal, bilaterally, 01:10 ENT: External ear(s): are unremarkable, Nose: is normal, Mouth: Lips: moist, Oral mucosa: moist, Posterior pharynx: Airway: no evidence of obstruction, patent, 01:10 Chest/axilla: Inspection: normal, 01:10 Cardiovascular: Rate: tachycardic, 01:10 Respiratory: the patient does not display signs of respiratory distress, Respirations: normal, no use of accessory muscles, no retractions, labored breathing, is not present, Breath sounds: are clear throughout, no decreased breath sounds, no stridor, no wheezing, 01:10 Abdomen/GI: Inspection: abdomen appears normal, Bowel sounds: active, all quadrants, Palpation: soft, in all quadrants, severe abdominal tenderness, in the left lower quadrant, rebound tenderness, is not appreciated, voluntary guarding, is elicited in the left lower quadrant, 01:10 Back: CVA tenderness, is absent, Vital Signs: 00:54 BP 168 / 94; Pulse 104; Resp 22 S; Temp 98.6(TE); Pulse Ox 99% on R/A; Weight 66.68 kg; br2 Height 5 ft. 3 in. ; Pain 6/10; 02:37 BP 123 / 67; Pulse 76; Resp 17; Temp 98.6; Pulse Ox 100% ; Pain 5/10; bm8 03:32 BP 117 / 73; Pulse 73; Resp 17; Temp 98.6; Pulse Ox 100% ; Pain 0/10; bm8 00:54 Body Mass Index 26.04 (66.68 kg, 160.02 cm) br2 00:54 Pain Scale: Adult br2 02:37 Pain Scale: Adult bm8 03:32 Pain Scale: Adult bm8 Geetha Coma Score: 00:59 Eye Response: spontaneous(4). Motor Response: obeys commands(6). Verbal Response: bm8 oriented(5). Total: 15. 02:37 Eye Response: spontaneous(4). Motor Response: obeys commands(6). Verbal Response: bm8 oriented(5). Total: 15. 03:32 Eye Response: spontaneous(4). Motor Response: obeys commands(6). Verbal Response: bm8 oriented(5). Total: 15. MDM: 00:50 Medical Screening Exam initiated cp 01:15 Differential diagnosis: appendicitis, diverticulitis, Ectopic , Endometriosis, cp non-specific abd pain, Ovarian Torsion, Pelvic Inflammatory Disease, Pyelonephritis, Tubal Ovarian Abcess, Ureterolithiasis, urinary tract infection. 02:15 Data reviewed: vital signs, nurses notes, lab test result(s), I have discussed the cp patient's presentation/case with the attending Emergency Department Physician;. Awaiting: CT scan results. Transition of care: After a detail discussion of the patient's case, care is transferred to Chan Regalado DO. 02:27 ED course: I took over care of this patient from KATHLEEN salas, this is a 25-year-old tt7 female with abdominal pain and vomiting, she has been treated with parenteral analgesics and antiemetics, laboratory results are overall nonacute, pending results of CT imaging of the abdomen/pelvis. 03:23 ED course: I reassessed the patient, feeling significantly improved, pain resolved, tt7 nausea controlled with medications, tolerating oral intake in the emergency department, I discussed results of CT imaging that there were no acute findings, I discussed findings of the ovarian cyst and need for gynecology follow-up as an outpatient, will provide the patient with a prescription of Compazine and return precautions. 07/22 00:58 Order name: CBC with Diff; Complete Time: 01:25 cp 07/22 01:26 Interpretation: Normal except: RBC 5.21; HGB 15.4; HCT 45.3. cp 07/22 00:58 Order name: CMP; Complete Time: 01:46 cp 07/22 01:46 Interpretation: Normal except: GLOB 3.7; A/G 1.0; Reviewed. cp 07/22 00:58 Order name: Lipase; Complete Time: 01:46 cp 07/22 00:58 Order name: HCG-Quantitative; Complete Time: 01:46 cp 07/22 01:00 Order name: UA Rfx Dayron Cult if indicated; Complete Time: 01:46 cp 07/22 01:00 Order name: Test, Urine; Complete Time: 01:46 cp 07/22 01:25 Order name: CT Abd/Pelvis - IV Contrast Only cp 07/22 00:58 Order name: IV Saline Lock; Complete Time: 01:01 cp 07/22 00:58 Order name: Labs collected and sent; Complete Time: 01:01 cp Administered Medications: 01:04 Drug: morphine IVP or IV 4 mg IVP once over 4 mins Route: IVP; Infused Over: 4 mins; at6 Site: right antecubital; 01:28 Follow up: Response: Pain is unchanged, physician notified at6 01:05 Drug: Ondansetron IVP 4 mg IVP once; over 2 minutes Route: IVP; Site: right antecubital;at6 01:28 Follow up: Response: No adverse reaction at6 01:05 Drug: NS 0.9% IV 1000 ml IV at 1 bolus Per protocol; to be given as a bolus over 60 at6 minutes Route: IV; Rate: 1 bolus; Site: right antecubital; 01:29 Follow up: Response: No adverse reaction at6 03:33 Follow up: Response: No adverse reaction; IV Status: Completed infusion bm8 01:38 Drug: morphine IVP or IV 4 mg IVP once over 4 mins Route: IVP; Infused Over: 4 mins; bm8 Site: right antecubital; 02:40 Follow up: Response: No adverse reaction bm8 01:57 Drug: Ketorolac IVP 30 mg IVP once Route: IVP; Site: right antecubital; at6 02:40 Follow up: Response: No adverse reaction bm8 02:10 Drug: metoCLOPramide IVP 10 mg IVP once; over 1 to 2 minutes Route: IVP; Site: right at6 antecubital; 02:40 Follow up: Response: No adverse reaction bm8 02:10 Drug: diphenhydrAMINE IVP 25 mg IVP once Route: IVP; Site: right antecubital; at6 02:40 Follow up: Response: No adverse reaction bm8 Disposition: 03:24 Co-signature as Attending Physician, Chan Regalado DO. tt7 Disposition Summary: 07/22/25 03:17 Discharge Ordered Notes: Location: Home tt7 Problem: new tt7 Symptoms: are resolved tt7 Condition: Stable tt7 Diagnosis - Abdominal pain, unspecified tt7 - Nausea with vomiting, unspecified tt7 Followup: tt7 - With: Emergency Department - When: As needed - Reason: Followup: tt7 - With: Private Physician - When: 1 - 2 days - Reason: Recheck today's complaints, Re-evaluation by your physician Discharge Instructions: - Discharge Summary Sheet tt7 - Cyclic Vomiting Syndrome, Adult tt7 Forms: - Medication Reconciliation Form tt7 - Antibiotic Education tt7 - Prescription Opioid Use tt7 - Patient Portal Instructions tt7 - Leadership Thank You Letter tt7 Prescriptions: - Compazine 10 mg Oral tablet - take 1 tablet ORAL route every 8 hours As needed; 20 tablet; Refills: 0, tt7 Product Selection Permitted Signatures: Dispatcher [employer] EDMS Praful Salas PA-C PA-C cp McDonald, Brad, RN RN bm8 Katharine Field, RN RN br2 Chan Regalado, DO tt7 Ana Regalado, RN RN at6 Corrections: (The following items were deleted from the chart) 01:00 01:00 UA Rfx Dayron Cult if indicated+U.LAB.BRZ ordered. EDMS EDMS 01:00 01:00 Test, Urine+UC.LAB.BRZ ordered. EDMS EDMS 01:26 01:26 Abdomen Pelvis W Con+CT.RAD.BRZ ordered. EDMS EDMS
--- NOTE | 2025-07-22 03:18 | ER ---
Nurse's Notes [facility] Name: Audrey Alford Age: 25 yrs Sex: Female : 2000 Arrival Date: 07/22/2025 Time: 00:43 Bed 7 Private MD: Diagnosis: Abdominal pain, unspecified;Nausea with vomiting, unspecified Presentation: 07/22 00:54 Chief complaint: Patient states: PT C/O LLQ PAIN WITH NAUSEA/VOMITING. PT WAS IN ER br2 YESTERDAY MORNING FOR THE SAME SYMPTOMS. Coronavirus screen: Client denies travel out of the [place] in the last 14 days. Ebola Screen: Patient denies exposure to infectious person. Initial Sepsis Screen: Does the patient meet any 2 criteria? HR > 90 bpm. Does the patient have a suspected source of infection? No. Patient's initial sepsis screen is negative. Risk Assessment: Do you want to hurt yourself or someone else? Patient reports no desire to harm self or others. Onset of symptoms was July 21, 2025. 00:54 Method Of Arrival: Ambulatory br2 00:54 Acuity: ADRIANA 3 br2 Triage Assessment: 00:57 General: Appears uncomfortable, Behavior is calm, cooperative. Pain: Complains of pain br2 in left lower quadrant Pain does not radiate. Pain currently is 6 out of 10 on a pain scale. 00:57 General: Appears in no apparent distress. uncomfortable, Behavior is calm, cooperative, bm8 appropriate for age. Pain: Complains of pain in left lower quadrant Pain currently is 6 out of 10 on a pain scale. EENT: No deficits noted. No signs and/or symptoms were reported regarding the EENT system. Neuro: No deficits noted. Level of Consciousness is awake, alert, obeys commands, Oriented to person, place, time, situation, Appropriate for age. Cardiovascular: No deficits noted. Respiratory: No deficits noted. GI: Abdomen is flat, non-distended, Abdomen is tender to palpation in left lower quadrant Guarding noted in left lower quadrant Reports lower abdominal pain, Pain is 6 out of 10 on a pain scale. pain is better with pressure. : No signs and/or symptoms were reported regarding the genitourinary system. Derm: No signs and/or symptoms reported regarding the dermatologic system. Musculoskeletal: No signs and/or symptoms reported regarding the musculoskeletal system. 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 - Infectious Disease History:: Denies. - Social history:: Smoking status: Reported history of juuling and/or vaping. Patient uses alcohol, occasionally. Patient/guardian denies using street drugs. Screenin:59 [facility] ED Fall Risk Assessment (Adult) History of falling in the last 3 months, bm8 including since admission No falls in past 3 months (0 pts) Confusion or Disorientation No (0 pts) Intoxicated or Sedated No (0 pts) Impaired Gait No (0 pts) Mobility Assist Device Used No (0 pt) Altered Elimination No (0 pt) Score/Fall Risk Level 0 - 2 = Low Risk Oriented to surroundings, Maintained a safe environment, Educated pt \T\ family on fall prevention, incl call for assistance when getting out of bed, Provided non-skid footwear, Hourly rounding (assess needs \T\ fall precautionary measures) done, Used ambulatory aids as needed (educated on \T\ assisted with), Used gait belt as appropriate. Abuse screen: Denies threats or abuse. Nutritional screening: No deficits noted. Tuberculosis screening: No symptoms or risk factors identified. Assessment: 00:59 Reassessment: see triage assessment. bm8 02:37 Reassessment: Patient appears in no apparent distress at this time. Patient and/or bm8 family updated on plan of care and expected duration. Pain level reassessed. Patient is alert, oriented x 3, equal unlabored respirations, skin warm/dry/pink. Patient states feeling better. Patient states symptoms have improved. Pain: Pain currently is 5 out of 10 on a pain scale. GI: Bowel sounds present X 4 quads. 03:32 Reassessment: Patient appears in no apparent distress at this time. Patient and/or bm8 family updated on plan of care and expected duration. Pain level reassessed. Patient is alert, oriented x 3, equal unlabored respirations, skin warm/dry/pink. Patient denies pain at this time. Patient states feeling better. Patient states symptoms have improved. Vital Signs: 00:54 BP 168 / 94; Pulse 104; Resp 22 S; Temp 98.6(TE); Pulse Ox 99% on R/A; Weight 66.68 kg; br2 Height 5 ft. 3 in. ; Pain 6/10; 02:37 BP 123 / 67; Pulse 76; Resp 17; Temp 98.6; Pulse Ox 100% ; Pain 5/10; bm8 03:32 BP 117 / 73; Pulse 73; Resp 17; Temp 98.6; Pulse Ox 100% ; Pain 0/10; bm8 00:54 Body Mass Index 26.04 (66.68 kg, 160.02 cm) br2 00:54 Pain Scale: Adult br2 02:37 Pain Scale: Adult bm8 03:32 Pain Scale: Adult bm8 Redmond Coma Score: 00:59 Eye Response: spontaneous(4). Motor Response: obeys commands(6). Verbal Response: bm8 oriented(5). Total: 15. 02:37 Eye Response: spontaneous(4). Motor Response: obeys commands(6). Verbal Response: bm8 oriented(5). Total: 15. 03:32 Eye Response: spontaneous(4). Motor Response: obeys commands(6). Verbal Response: bm8 oriented(5). Total: 15. ED Course: 00:44 Patient arrived in ED. mr 00:46 Praful Salas PA-C is PHCP. cp 00:46 Chan Regalado DO is Attending Physician. cp 00:55 Inserted saline lock: 18 gauge in right antecubital area, using aseptic technique. vk Flushed with 10 mL NS. 00:57 Rafael Ivory, RN is Primary Nurse. bm8 00:57 Triage completed. br2 00:57 Arm band placed on right wrist. bm8 00:59 No provider procedures requiring assistance completed. Initial lab(s) drawn, by me, bm8 sent to lab. Patient maintains SpO2 saturation greater than 95% on room air. 00:59 Patient has correct armband on for positive identification. Bed in low position. Call bm8 light in reach. Side rails up X 1. Adult w/ patient. Client placed on continuous cardiac and pulse oximetry monitoring. NIBP monitoring applied. Pulse ox on. NIBP on. Door closed. Noise minimized. Warm blanket given. Verbal reassurance given. Head of bed elevated. 02:29 Chan Regalado DO is Attending Physician. tt7 02:35 CT Abd/Pelvis - IV Contrast Only In Process Unspecified. EDMS 03:32 IV discontinued, intact, bleeding controlled, No redness/swelling at site. Pressure bm8 dressing applied. 03:32 Provided Education on: post er care. bm8 Administered Medications: 01:04 Drug: morphine IVP or IV 4 mg IVP once over 4 mins Route: IVP; Infused Over: 4 mins; at6 Site: right antecubital; 01:28 Follow up: Response: Pain is unchanged, physician notified at6 01:05 Drug: Ondansetron IVP 4 mg IVP once; over 2 minutes Route: IVP; Site: right antecubital;at6 01:28 Follow up: Response: No adverse reaction at6 01:05 Drug: NS 0.9% IV 1000 ml IV at 1 bolus Per protocol; to be given as a bolus over 60 at6 minutes Route: IV; Rate: 1 bolus; Site: right antecubital; 01:29 Follow up: Response: No adverse reaction at6 03:33 Follow up: Response: No adverse reaction; IV Status: Completed infusion bm8 01:38 Drug: morphine IVP or IV 4 mg IVP once over 4 mins Route: IVP; Infused Over: 4 mins; bm8 Site: right antecubital; 02:40 Follow up: Response: No adverse reaction bm8 01:57 Drug: Ketorolac IVP 30 mg IVP once Route: IVP; Site: right antecubital; at6 02:40 Follow up: Response: No adverse reaction bm8 02:10 Drug: metoCLOPramide IVP 10 mg IVP once; over 1 to 2 minutes Route: IVP; Site: right at6 antecubital; 02:40 Follow up: Response: No adverse reaction bm8 02:10 Drug: diphenhydrAMINE IVP 25 mg IVP once Route: IVP; Site: right antecubital; at6 02:40 Follow up: Response: No adverse reaction bm8 Medication: 00:59 VIS not applicable for this client. bm8 Outcome: 03:17 Discharge ordered by . tt7 03:34 Discharged to home ambulatory, with family, bm8 03:34 Condition: stable 03:34 Discharge instructions given to patient, family, Instructed on discharge instructions, follow up and referral plans. Demonstrated understanding of instructions, follow-up care, Prescriptions given X 1, 03:49 Patient left the ED. bm8 Signatures: Dispatcher [employer] EDMS Sofy Vinson, Reg Reg mr Maritza Praful, HONEY PAJayde Akbar cp, Brad, RN RN bm8 Katharine Field RN RN br2 Chan Regalado, DO tt7 Ana Regalado, RN RN at6
[2025-07-22 11:21] VITALS: TEMP 98.6
[2025-07-22 11:26] VITALS: O2SAT 100
[2025-07-22 11:28] VITALS: BP 117/73
== END 2025-07-22 03:49 | disposition home or self-care (01) ==
LOC: ER 00:43
DX: R10.32 Left lower quadrant pain (principal); R11.2 Nausea with vomiting, unspecified
CPT/HCPCS: 96361; 85025; 81001; 36415; 81025; 84702; 83690; 80053; 74177; 96375; 96374; 99284; Q9967; J1885; J2765; J1200; J2270 ×2; J2405; J7030